=== PATIENT | female | born 1980 | race Caucasian/White ===

== ENCOUNTER 2017-08-29 10:22 | Emergency (ER) | payer BC, OTHER ==
[2017-08-29 10:31] VITALS: BP 132/89; PULSE 97; TEMP 98.8; BMI 30.4
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
[2017-08-29] MEDS ORDERED: KETOROLAC TROMETHAMINE 60 MG/2 ML VIAL IM ONE (11:23)
[2017-08-29] MEDS ORDERED: KETOROLAC TROMETHAMINE 60 MG/2 ML VIAL ONE (11:25)
== END 2017-08-29 11:28 | disposition home or self-care (01) ==
LOC: JERFT 10:22
PROC: 3E0233Z Introduction of Anti-inflammatory into Muscle, Percutaneous Approach (ICD-10-PCS; principal; 2017-08-29)
DX: M62.830 Muscle spasm of back (principal); V49.49XA Driver injured in collision with other motor vehicles in traffic accident, initial encounter; Y92.488 Other paved roadways as the place of occurrence of the external cause; Y93.89 Activity, other specified; Y99.8 Other external cause status
CPT/HCPCS: 84703; 99281-25

== ENCOUNTER 2018-03-07 09:36 | Emergency (ER) | payer BC, OTHER ==
[2018-03-07 09:52] VITALS: BMI 30.4
--- NOTE | 2018-03-07 09:53 | PDOC ---
History of Present Illness - General Chief Complaint: Chest Pain Stated Complaint: SOB Time Seen by Provider: 03/07/18 09:53 - History of Present Illness Initial Comments: 03/07/18 09:57 Ms. Tillman is a 37 yo female w/ pmh of WPW, afib, asthma, degenerative disc disease who presents for evaluation of 3 week history of cough productive of yellow sputum with subjective fever/chills. Patient reports she started a course of azithromycin 02/25 however saw no improvement of her symptoms. Patient further reports she has been taking over the counter medications for cough suppresion, lozenges, etc. Ms. Tillman also endorses recent left sided chest pain exacerbated by coughing and deep inspiration. Finally, patient endorses starting smoking again recently as she has been under a lot of stress due to housing issues. The patient denies headache and dizziness. Denies nausea, vomit, diarrhea and constipation. Denies dysuria, frequency, urgency and hematuria. Past History - Past Medical History Allergies/Adverse Reactions: Allergies Allergy/AdvReac Type Severity Reaction Status Date / Time Penicillins Allergy Verified 08/29/17 10:31 Home Medications: Ambulatory Orders Cyclobenzaprine HCl [Flexeril -] 10 mg PO TID #21 tablet 08/29/17 Ketorolac Tromethamine [Toradol] 10 mg PO TID #21 tablet 08/29/17 Albuterol Sulfate 0.5% [Ventolin 0.5% Nebulizing Soln. -] 1 amp NEB Q4H PRN #1 box 03/07/18 Nicotine [Nicotine Patch Kit] 1 each TD DAILY PRN #1 box 03/07/18 Prednisone 40 mg PO DAILY 4 Days #16 tablet 03/07/18 Asthma: Yes Cardiac Disorders: Yes (WPW,a.fib) COPD: No - Immunization History Immunization Up to Date: Yes - Suicide/Smoking/Psychosocial Hx Smoking Status: Yes Smoking History: Current every day smoker Have you smoked in the past 12 months: No Number of Cigarettes Smoked Daily: 1 If you are a former smoker, when did you quit?: 8 years ago Information on smoking cessation initiated: No Hx Alcohol Use: No Drug/Substance Use Hx: No Substance Use Type: None Hx Substance Use Treatment: No Review of Systems - Review of Systems Comments:: 03/07/18 09:57 GENERAL/CONSTITUTIONAL: +Subjective fever/chills. No weakness. HEAD, EYES, EARS, NOSE AND THROAT: No change in vision. No ear pain or discharge. No sore throat. CARDIOVASCULAR: +Left sided chest pain with productive cough as described. RESPIRATORY: No wheezing or hemoptysis. GASTROINTESTINAL: No nausea, vomiting, diarrhea or constipation. GENITOURINARY: No dysuria, frequency, or change in urination. MUSCULOSKELETAL: No joint or muscle swelling or pain. No neck or back pain. SKIN: No rash NEUROLOGIC: No headache, vertigo, loss of consciousness, or change in strength/ sensation. ENDOCRINE: No increased thirst. No abnormal weight change HEMATOLOGIC/LYMPHATIC: No anemia, easy bleeding, or history of blood clots. ALLERGIC/IMMUNOLOGIC: No hives or skin allergy. *Physical Exam - Vital Signs Last Vital Signs Temp Pulse Resp BP Pulse Ox 98.1 F 101 H 16 126/63 100 03/07/18 09:46 03/07/18 09:46 03/07/18 09:46 03/07/18 09:46 03/07/18 09:46 - Physical Exam Comments: 03/07/18 09:57 GENERAL: Awake, alert, and fully oriented, in no acute distress HEAD: No signs of trauma, normocephalic, atraumatic EYES: PERRLA, EOMI, sclera anicteric, conjunctiva clear ENT: Auricles normal inspection, hearing grossly normal, nares patent, oropharynx clear without exudates. Moist mucosa NECK: Normal ROM, supple, no lymphadenopathy, JVD, or masses LUNGS: +Wheezes appreciated. Patient has impressive cough appreciated on exam as well, however no distress, speaks full sentences HEART: Regular rate and rhythm, normal S1 and S2, no murmurs, rubs or gallops, peripheral pulses normal and equal bilaterally. ABDOMEN: Soft, nontender, normoactive bowel sounds. No guarding, no rebound. No masses EXTREMITIES: Normal inspection, Normal range of motion, no edema. No clubbing or cyanosis. NEUROLOGICAL: Cranial nerves II through XII grossly intact. Normal speech, normal gait, no focal sensorimotor deficits SKIN: Warm, Dry, normal turgor, no rashes or lesions noted. Moderate Sedation - Procedure Monitoring Vital Signs: Procedure Monitoring Vital Signs Temperature 98.1 F 03/07/18 09:46 Pulse Rate 101 H 03/07/18 09:46 Respiratory Rate 16 03/07/18 09:46 Blood Pressure 126/63 03/07/18 09:46 O2 Sat by Pulse Oximetry (%) 100 03/07/18 09:46 ED Treatment Course - LABORATORY CBC & Chemistry Diagram: 03/07/18 10:28 03/07/18 10:24 Medical Decision Making - Medical Decision Making 03/07/18 12:44 Ms. Tillman is a 37 yo female w/ pmh as described who presents for evaluation of symptoms concerning for asthma exacerbation vs. acute chest process vs. PE. Patient EKG significant for ST elevations in aVR however unchanged from previous. Patient labs grossly wnl as below. CXR negative. No concern for acute process at this time and patient reporting improvement of symptoms following breathing treatments and prednisone. Discharging patient w/ outpatient prednisone Rx and outpatient follow-up. Also did extensive counseling on smoking cessation and nicotine patches given as well. Patient will follow-up with PCP later this week. Patient verbalized understanding and agreement and will comply. Laboratory Results - last 24 hr 03/07/18 03/07/18 03/07/18 10:24 10:24 10:28 WBC 5.4 RBC 4.86 Hgb 13.2 Hct 38.9 MCV 80.1 MCH 27.1 MCHC 33.9 RDW 14.8 Plt Count 297 MPV 9.5 D Absolute Neuts (auto) 3.6 Neutrophils % 66.9 Lymphocytes % 19.2 D Monocytes % 10.7 H Eosinophils % 2.4 D Basophils % 0.8 Nucleated RBC % 0 D-Dimer 311 Sodium 140 Potassium 4.0 Chloride 107 Carbon Dioxide 23 Anion Gap 10 BUN 10 Creatinine 0.7 Creat Clearance w eGFR > 60 Random Glucose 69 L Calcium 8.8 Total Bilirubin 0.2 AST 12 L ALT 18 Alkaline Phosphatase 94 Creatine Kinase 64 Troponin I < 0.02 Total Protein 7.0 Albumin 3.8 Urine Color Urine Appearance Urine pH Ur Specific [place] Urine Protein Urine Glucose (UA) Urine Ketones Urine Blood Urine Nitrite Urine Bilirubin Urine Urobilinogen Ur Leukocyte Esterase Urine WBC (Auto) Urine RBC (Auto) Ur Epithelial Cells Urine Mucus Urine HCG, Qual 03/07/18 10:28 WBC RBC Hgb Hct MCV MCH MCHC RDW Plt Count MPV Absolute Neuts (auto) Neutrophils % Lymphocytes % Monocytes % Eosinophils % Basophils % Nucleated RBC % D-Dimer Sodium Potassium Chloride Carbon Dioxide Anion Gap BUN Creatinine Creat Clearance w eGFR Random Glucose Calcium Total Bilirubin AST ALT Alkaline Phosphatase Creatine Kinase Troponin I Total Protein Albumin Urine Color Yellow Urine Appearance Clear Urine pH 5.0 Ur Specific [place] 1.018 Urine Protein Negative Urine Glucose (UA) Negative Urine Ketones Negative Urine Blood Negative Urine Nitrite Negative Urine Bilirubin Negative Urine Urobilinogen 2.0 H Ur Leukocyte Esterase 3+ H D Urine WBC (Auto) 8 Urine RBC (Auto) 3 Ur Epithelial Cells Moderate Urine Mucus Rare Urine HCG, Qual Negative *DC/Admit/Observation/Transfer Diagnosis at time of Disposition: Cough Chest pain Qualifiers: Chest pain type: unspecified Qualified Code(s): R07.9 - Chest pain, unspecified - Discharge Dispostion Disposition: HOME Condition at time of disposition: Stable - Prescriptions Prescriptions: Albuterol Sulfate 0.5% [Ventolin 0.5% Nebulizing Soln. -] 1 amp NEB Q4H PRN #1 box PRN Reason: Cough Nicotine [Nicotine Patch Kit] 1 each TD DAILY PRN #1 box PRN Reason: Agitation Prednisone 40 mg PO DAILY 4 Days #16 tablet - Referrals - Patient Instructions Printed Discharge Instructions: DI for Atypical Chest Pain, DI for Asthma -- Adult, How to Quit Smoking Additional Instructions: You were evaluated today in the ER for your cough. No concerning findings were found at this time. We have sent prescriptions to your pharmacy. Please take all medications as proscribed. Follow-up with primary care provider later this week for further evaluation. Do your best to stop smoking as discussed to reduce symptoms. Return to ER if any difficulty breathing, fevers, chills, or other concerning symptoms. - Post Discharge Activity
[2018-03-07] MEDS: ALBUTEROL SO4 2.5/IPRATROPIUM 0.5 INH SOL 3 ML VIAL.NEB. NEB SCH ×4 (10:15→11:06)
[2018-03-07] MEDS ORDERED: ALBUTEROL SO4 2.5/IPRATROPIUM 0.5 INH SOL 3 ML VIAL.NEB. NEB ONE (10:17)
--- NOTE | 2018-03-07 10:38 | PDOC ---
Attending Attestation - Resident Resident Name: Shmuel Cha - ED Attending Attestation I have performed the following: I have examined & evaluated the patient, The case was reviewed & discussed with the resident, I agree w/resident's findings & plan, Exceptions are as noted - HPI HPI: 03/07/18 11:17 37yo F hx migraines, Astsg-Jqdsgeibb-Oyvtr syndrome with chronic chest pain, pAF , asthma presents to the ED with 3 weeks of progressive cough, SOB, and CP. Pt reports URI sxs 3 weeks ago followed by a constant cough. Pt reports progressive SOB, worse when she coughs. Cough keeps her up at night. Also reports CP when she coughs. Denies recent fevers, chills. Pt denies diaphoresis , dizziness, abd pain, N/V/D, urinary sxs, LE edema. Denies recent travel. Came today after 3 weeks of symptoms due to persistence of symptoms. Pt saw PMD last week, was given a course of z-pack that she completed. She has also reports taking multiple OTC cough and mucinex medications with minimal relief. - Physicial Exam PE: 03/07/18 11:28 GENERAL: Awake, alert, and fully oriented, in no acute distress. Frequent dry cough HEAD: No signs of trauma EYES: PERRLA, EOMI, sclera anicteric, conjunctiva clear ENT: Nares patent, oropharynx clear without exudates. Moist mucosa NECK: Normal ROM, supple, no lymphadenopathy, JVD, or masses LUNGS: Breath sounds equal, clear to auscultation bilaterally. No wheezes, and no crackles HEART: Regular rate and rhythm, normal S1 and S2, no murmurs, rubs or gallops ABDOMEN: Soft, nontender, normoactive bowel sounds. No guarding, no rebound. No masses EXTREMITIES: Normal range of motion, no edema. No cords, erythema, or tenderness NEUROLOGICAL: Normal speech, cranial nerves intact, 5/5 strength in all 4 extremities, normal sensation to light touch in all 4 extremities, normal cerebellar exam, normal tone SKIN: Warm, Dry, normal turgor, no rashes or lesions noted. - Medical Decision Making 03/07/18 11:31 37yo F hx pAF, WPW, asthma presents to the ED with 3 weeks of cough, SOB, chest tightness when coughing. Vitals with mild tachycardia. Exam unremarkable, lungs clear. DDx includes but not limited to asthma exacerbation vs asthmatic bronchitis vs ACS vs PE. EKG today is unchanged from previous and pt reports chest tightness only when coughing. Symptoms not exertional. PE is consideration , although pt is low risk. Does not clear PERC due to HR 101, will check dimer. Reassess. 03/07/18 12:38 Pt is feeling much better after nebs and steroids. Lungs remain clear. No crackles. Labs including dimer, trop negative. Likely asthmatic bronchitis. Pt is comfortable, well appearing. WIll DC with steroid course, neb bullets. I discussed the physical exam findings, ancillary test results and final diagnoses with the patient. I answered all of the patient's questions. The patient was satisfied with the care received and felt comfortable with the discharge plan and treatment plan. The patient will call their primary care physician within 24 hours to arrange follow-up and will return to the Emergency Department with any new, persistent or worsening symptoms. Heart Score/ECG Review #1 03/07/18 11:30 Twelve-lead EKG was performed and reviewed by me. Normal sinus rhythm, rate 93. Normal axis. ST elevation in aVR with reciprocal ST depressions in 1, 2, V5 and V6. When compared to EKG from 06/14/2017, no significant changes.
[2018-03-07] MEDS ORDERED: SODIUM CHLORIDE 1,000 ML IV STA (11:12)
[2018-03-07] MEDS ORDERED: predniSONE 20 MG TABLET (UD) PO ONE (11:12)
[2018-03-07 11:21] LABS: BASO % 0.8 % (0-2.0); EOS % 2.4 % (0-4.5); HEMATOCRIT 38.9 % (32.4-45.2); HEMOGLOBIN 13.2 GM/dL (10.7-15.3); LYMPH % 19.2 % (8-40); MCH 27.1 pg (25.7-33.7); MCHC 33.9 g/dl (32.0-36.0); MEAN CELL VOLUME 80.1 fl (80-96); MEAN PLT VOLUME 9.5 fl (7.5-11.1); MONO % 10.7 % (3.8-10.2); NEUT % 66.9 % (42.8-82.8); PLATELET COUNT 297 K/MM3 (134-434); RBC 4.86 M/mm3 (3.60-5.2); RDW 14.8 % (11.6-15.6); WHITE BLOOD COUNT 5.4 K/mm3 (4.0-10.0)
[2018-03-07 11:28] LABS: URINE APPEARANCE CLEAR; URINE BILIRUBIN NEGATIVE (<2.0 mg/dL); URINE COLOR YELLOW; URINE GLUCOSE (UA) NEGATIVE (NEGATIVE); URINE KETONE NEGATIVE (NEGATIVE); URINE LEUK ESTERASE 3+ (NEGATIVE); URINE NITRITE NEGATIVE (NEGATIVE); URINE PROTEIN NEGATIVE (NEGATIVE)
[2018-03-07 11:29] LABS: HCG,QUALITATIVE URINE Negative
[2018-03-07 11:37] LABS: EPI CELLS MODERATE /HPF (FEW); URINE MUCUS RARE
[2018-03-07] MEDS ORDERED: predniSONE 20 MG TABLET (UD) ONE (11:45)
[2018-03-07 11:55] LABS: ALBUMIN 3.8 g/dl (3.4-5.0); ALK PHOS 94 U/L (45-117); ANION GAP 10 MMOL/L (8-16); BILIRUBIN,TOTAL 0.2 mg/dL (0.2-1); BLOOD UREA NITROGEN 10 mg/dL (7-18); CALCIUM 8.8 mg/dL (8.5-10.1); CHLORIDE 107 mmol/L (98-107); CO2 23 mmol/L (21-32); CREATININE 0.7 mg/dL (0.55-1.3); GLUCOSE,RANDOM 69 mg/dL (74-106); SGOT/AST 12 U/L (15-37); SGPT/ALT 18 U/L (13-61); SODIUM 140 mmol/L (136-145)
[2018-03-07 13:46] VITALS: BP 112/59; PULSE 92; TEMP 98.2
--- NOTE | 2018-03-07 15:14 | EKG ---
Test Reason : Blood Pressure : / mmHG Vent. Rate : 093 BPM Atrial Rate : 093 BPM P-R Int : 110 ms QRS Dur : 130 ms QT Int : 362 ms P-R-T Axes : 026 049 217 degrees QTc Int : 450 ms NORMAL SINUS RHYTHM VENTRICULAR PRE-EXCITATION, WPW PATTERN TYPE B ABNORMAL ECG WHEN COMPARED WITH ECG OF 14-JUN-2017 11:55, PREMATURE VENTRICULAR COMPLEXES ARE NO LONGER PRESENT Confirmed by FELIX YIP MD ([id number]) on 03/07/2018 3:14:25 PM Referred By: Confirmed By:FELIX YIP MD
== END 2018-03-07 13:35 | disposition home or self-care (01) ==
LOC: JER 09:36
PROC: 3E0337Z Introduction of Electrolytic and Water Balance Substance into Peripheral Vein, Percutaneous Approach (ICD-10-PCS; principal; 2018-03-07)
DX: R07.9 Chest pain, unspecified (principal); R05 Cough
CPT/HCPCS: 36415; 71046-TC-FY; 80053; 81003; 81015; 82550; 84484; 84703; 85025; 85379; 87086; 93005; 93010; 99283-25; J7030

== ENCOUNTER 2018-03-14 15:23 | Inpatient (IN) | payer BC, OTHER ==
[2018-03-14] MEDS ORDERED: ALBUTEROL SO4 2.5/IPRATROPIUM 0.5 INH SOL 3 ML VIAL.NEB. NEB ONE ×2 (15:28→15:35)
--- NOTE | 2018-03-14 15:35 | PDOC ---
Rapid Medical Evaluation Chief Complaint: Asthma Medical Evaluation: Allergies Allergy/AdvReac Type Severity Reaction Status Date / Time Penicillins Allergy Verified 08/29/17 10:31 03/14/18 15:31 I have performed a brief in-person evaluation of this patient. The patient presents with a chief complaint of:severe cough and worsen SOB Pertinent physical exam findings: tripoding with thick tight cough, Poor air movement I have ordered the following: DuoNeb and walked to [facility] - Discussed with MOMO Villafana to eval and possibly escalate The patient will proceed to the ED for further evaluation. 03/14/18 15:32 Discharge Disposition - Discharge Dispostion Condition at time of disposition: Stable - Referrals - Patient Instructions - Post Discharge Activity
[2018-03-14] MEDS ORDERED: methylPREDNISolone NA SUCC 125 MG/2 ML VIAL IVPUSH ONE (16:04)
[2018-03-14] MEDS ORDERED: MAGNESIUM SULF 50% (8.12 MEQ/2 ML-1 GM VIAL) IVPB ONE (16:04)
--- NOTE | 2018-03-14 16:05 | PDOC ---
History of Present Illness - General Chief Complaint: Asthma Stated Complaint: CHEST PAIN, SOB Time Seen by Provider: 03/14/18 15:39 History Source: Patient - History of Present Illness Timing/Duration: reports: other Past History - Past Medical History Allergies/Adverse Reactions: Allergies Allergy/AdvReac Type Severity Reaction Status Date / Time Penicillins Allergy Verified 08/29/17 10:31 Home Medications: Ambulatory Orders Cyclobenzaprine HCl [Flexeril -] 10 mg PO TID #21 tablet 08/29/17 Ketorolac Tromethamine [Toradol] 10 mg PO TID #21 tablet 08/29/17 Albuterol Sulfate 0.5% [Ventolin 0.5% Nebulizing Soln. -] 1 amp NEB Q4H PRN #1 box 03/07/18 Nicotine [Nicotine Patch Kit] 1 each TD DAILY PRN #1 box 03/07/18 Asthma: Yes Cardiac Disorders: Yes (chaya SANCHEZ) COPD: No - Surgical History Cardiac Surgery: No - Immunization History Immunization Up to Date: Yes - Suicide/Smoking/Psychosocial Hx Smoking Status: Yes Smoking History: Never smoked Have you smoked in the past 12 months: No Number of Cigarettes Smoked Daily: 1 If you are a former smoker, when did you quit?: 8 years ago Information on smoking cessation initiated: No Hx Alcohol Use: No Drug/Substance Use Hx: No Substance Use Type: None Hx Substance Use Treatment: No Review of Systems - Review of Systems Constitutional: No: Fever Respiratory: Yes: Shortness of Breath. No: Cough Cardiac (ROS): Yes: Chest Tightness *Physical Exam - Vital Signs Last Vital Signs Temp Pulse Resp BP Pulse Ox 98.4 F 114 H 22 H 139/97 100 03/14/18 15:29 03/14/18 15:29 03/14/18 15:29 03/14/18 15:29 03/14/18 15:29 - Physical Exam General Appearance: Yes: Appropriately Dressed, Mild Distress HEENT: positive: Normal Voice Neck: positive: Supple Respiratory/Chest: positive: Wheezing Cardiovascular: positive: S1, S2, Tachycardia Integumentary: positive: Dry, Warm Neurologic: positive: Fully Oriented, Alert, Normal Mood/Affect Moderate Sedation - Procedure Monitoring Vital Signs: Procedure Monitoring Vital Signs Temperature 98.4 F 03/14/18 15:29 Pulse Rate 114 H 03/14/18 15:29 Respiratory Rate 22 H 03/14/18 15:29 Blood Pressure 139/97 03/14/18 15:29 O2 Sat by Pulse Oximetry (%) 100 03/14/18 15:29 ED Treatment Course - LABORATORY CBC & Chemistry Diagram: 03/14/18 16:20 03/14/18 16:20 - RADIOLOGY Radiology Studies Ordered: Category Date Time Status CHEST X-RAY PORTABLE* [RAD] Stat Radiology 03/14/18 16:04 Ordered Medical Decision Making - Medical Decision Making 03/14/18 16:05 37 yo F, WPW syndrome w/ chronic CP, pAF, asthma, s/p last admission 4 years ago , no intubations, pna, here w/ sob and wheezing. pt reports that she was seen in ED for same last week and had neg w/u including ddimer, EKG and CXR. Was dc w / steroid taper but states sxs never completely resolved. No cough, f/c. See exam Asthma flare S/p recent ED visit and completed pred taper w/ no relief CXR on prior visit neg Tachy to 114 and tachypneic to 22 w/ 100% sats on RA w/ diffuse wheezing on exam -serial nebs -pred -possible obs admit 03/14/18 16:09 At some point while receiving ebs, pt /co feeling unwell w/ palpitations, dizziness and "spasm" of her R hand. States she has had similar episode and always during nebs administration. Will hold off on nebs, order mag, steroids and EKG. Dr Smith aware 03/14/18 17:50 WBC of 18, possibly related to recent steroid taper. CXR read as no acute process. Will hold off on abx at this time. Pt improved w/ tx but still has some tightness. Will arrange admission at this time *DC/Admit/Observation/Transfer Diagnosis at time of Disposition: Asthma flare Qualifiers: Asthma severity: unspecified severity Asthma persistence: persistent Qualified Code(s): J45.901 - Unspecified asthma with (acute) exacerbation - Discharge Dispostion Condition at time of disposition: Fair Decision to Admit order: Yes - Referrals - Patient Instructions - Post Discharge Activity
[2018-03-14] MEDS ORDERED: MAGNESIUM 1GM/D5W - 2 GM/200 ML IVPB IVPB ONE (16:11)
[2018-03-14] MEDS ORDERED: methylPREDNISolone NA SUCC 125 MG/2 ML VIAL ONE (16:11)
[2018-03-14 16:32] LABS: BASO % 0.9 % (0-2.0); EOS % 0.8 % (0-4.5); HEMATOCRIT 40.7 % (32.4-45.2); HEMOGLOBIN 13.6 GM/dL (10.7-15.3); LYMPH % 35.4 % (8-40); MCH 26.8 pg (25.7-33.7); MCHC 33.4 g/dl (32.0-36.0); MEAN CELL VOLUME 80.3 fl (80-96); MEAN PLT VOLUME 9.5 fl (7.5-11.1); NEUT % 56.9 % (42.8-82.8); PLATELET COUNT 410 K/MM3 (134-434); RBC 5.07 M/mm3 (3.60-5.2); RDW 15.1 % (11.6-15.6); WHITE BLOOD COUNT 18.4 K/mm3 (4.0-10.0)
[2018-03-14 17:12] LABS: ALBUMIN 3.9 g/dl (3.4-5.0); ALK PHOS 79 U/L (45-117); ANION GAP 12 MMOL/L (8-16); BILIRUBIN,TOTAL 0.3 mg/dL (0.2-1); BLOOD UREA NITROGEN 9 mg/dL (7-18); CALCIUM 9.4 mg/dL (8.5-10.1); CHLORIDE 104 mmol/L (98-107); CO2 25 mmol/L (21-32); GLUCOSE,RANDOM 98 mg/dL (74-106); POTASSIUM 3.7 mmol/L (3.5-5.1); SGOT/AST 15 U/L (15-37); SGPT/ALT 21 U/L (13-61); SODIUM 141 mmol/L (136-145)
--- NOTE | 2018-03-14 17:46 | PDOC ---
*Physical Exam - Vital Signs Last Vital Signs Temp Pulse Resp BP Pulse Ox 98.4 F 82 20 122/70 100 03/14/18 15:29 03/14/18 16:37 03/14/18 16:37 03/14/18 16:37 03/14/18 16:37 ED Treatment Course - LABORATORY CBC & Chemistry Diagram: 03/14/18 16:20 03/14/18 16:20 - ADDITIONAL ORDERS Additional order review: Laboratory Results 03/14/18 03/14/18 16:20 16:20 Sodium 141 Potassium 3.7 Chloride 104 Carbon Dioxide 25 Anion Gap 12 BUN 9 Creatinine 1.0 Creat Clearance w eGFR > 60 Random Glucose 98 Calcium 9.4 Total Bilirubin 0.3 AST 15 ALT 21 Alkaline Phosphatase 79 Creatine Kinase 42 Troponin I < 0.02 Total Protein 7.0 Albumin 3.9 Serum , Qual Negative 03/14/18 16:20 RBC 5.07 MCV 80.3 MCHC 33.4 RDW 15.1 MPV 9.5 Neutrophils % 56.9 Lymphocytes % 35.4 D Monocytes % 6.0 Eosinophils % 0.8 Basophils % 0.9 - Medications Given in the ED: ED Medications Discontinued Medications Generic Name Dose Route Start Last Admin Trade Name Freq PRN Reason Stop Dose Admin Albuterol/Ipratropium 1 amp 03/14/18 15:28 03/14/18 15:38 Duoneb - NEB 03/14/18 15:29 1 amp ONCE ONE Administration Magnesium Sulfate 2 gm 03/14/18 16:04 03/14/18 16:31 Magnesium Sulfate IVPB 03/14/18 16:05 2 gm ONCE ONE Administration Methylprednisolone Sodium Succinate 125 mg 03/14/18 16:04 03/14/18 16:31 Solu-Medrol - IVPUSH 03/14/18 16:05 125 mg ONCE ONE Administration Medical Decision Making - Medical Decision Making 03/14/18 17:46 Pt seen by the Advanced Practice Provider under my direct supervision Ancillary studies reviewed I agree with plan as outlined by the Advanced Practice Provider MOMO Sloan *DC/Admit/Observation/Transfer - Discharge Dispostion Condition at time of disposition: Stable - Referrals - Patient Instructions - Post Discharge Activity
--- NOTE | 2018-03-14 19:35 | HP ---
Admitting History and Physical - Primary Care Physician PCP: Perfecto Ferrari - Admission History of Present Illness: 37 yo F, WPW syndrome w/ chronic CP, pAF, asthma, s/p last admission 4 years ago , no intubations, pna, here w/ sob and wheezing. pt reports that she was seen in ED for same last week and had neg w/u including ddimer, EKG and CXR. Was dc w / steroid taper but states sxs never completely resolved. No cough, f/c. - Past Medical History Pulmonary: Yes: Asthma Musculoskeletal: Yes: Chronic low back pain, Other (pia. knee pain ) - Past Surgical History Past Surgical History: Yes: Arthrosocopy (bilateral knees ), Tonsillectomy - Smoking History Smoking history: Never smoked Have you smoked in the past 12 months: No Aproximately how many cigarettes per day: 1 If you are a former smoker, when did you quit?: 8 years ago - Alcohol/Substance Use Hx Alcohol Use: No History of Substance Use: reports: None - Social History ADL: Independent Occupation: on disability History of Recent Travel: No Home Medications - Allergies Allergies/Adverse Reactions: Allergies Allergy/AdvReac Type Severity Reaction Status Date / Time Penicillins Allergy Verified 08/29/17 10:31 - Home Medications Home Medications: Ambulatory Orders Cyclobenzaprine HCl [Flexeril -] 10 mg PO TID #21 tablet 08/29/17 Ketorolac Tromethamine [Toradol] 10 mg PO TID #21 tablet 08/29/17 Albuterol Sulfate 0.5% [Ventolin 0.5% Nebulizing Soln. -] 1 amp NEB Q4H PRN #1 box 03/07/18 Nicotine [Nicotine Patch Kit] 1 each TD DAILY PRN #1 box 03/07/18 Family Disease History - Family Disease History Family Disease History: Diabetes: Father, Heart Disease: Father, CA: Mother ( bladder CA) Physical Examination Vital Signs: Vital Signs Temperature 98.4 F 03/14/18 15:29 Pulse Rate 82 03/14/18 16:37 Respiratory Rate 20 03/14/18 16:37 Blood Pressure 122/70 03/14/18 16:37 O2 Sat by Pulse Oximetry (%) 100 03/14/18 16:37 Constitutional: Yes: No Distress HENT: Yes: Atraumatic Neck: Yes: Supple Cardiovascular: Yes: Regular Rate and Rhythm Respiratory: Yes: Rhonchi, Wheezes Gastrointestinal: Yes: Normal Bowel Sounds Extremities: Yes: WNL Edema: No Neurological: Yes: Alert, Oriented Labs: CBC, BMP 03/14/18 16:20 03/14/18 16:20 Imaging - Results X-ray: Report Reviewed Problem List - Problems (1) Asthma flare Assessment/Plan: iv steroids duo nebs pulmonary consult prn cough syrup Code(s): J45.901 - UNSPECIFIED ASTHMA WITH (ACUTE) EXACERBATION Qualifiers: Asthma severity: unspecified severity Asthma persistence: persistent Qualified Code(s): J45.901 - Unspecified asthma with (acute) exacerbation Assessment/Plan Laboratory Tests 03/14/18 03/14/18 03/14/18 16:20 16:20 16:20 WBC 18.4 H RBC 5.07 Hgb 13.6 Hct 40.7 MCV 80.3 MCH 26.8 MCHC 33.4 RDW 15.1 Plt Count 410 D MPV 9.5 Absolute Neuts (auto) 10.5 H Neutrophils % 56.9 Lymphocytes % 35.4 D Monocytes % 6.0 Eosinophils % 0.8 Basophils % 0.9 Nucleated RBC % 0 Sodium 141 Potassium 3.7 Chloride 104 Carbon Dioxide 25 Anion Gap 12 BUN 9 Creatinine 1.0 Creat Clearance w eGFR > 60 Random Glucose 98 Calcium 9.4 Total Bilirubin 0.3 AST 15 ALT 21 Alkaline Phosphatase 79 Creatine Kinase 42 Troponin I < 0.02 Total Protein 7.0 Albumin 3.9 Serum , Qual Negative
[2018-03-14] MEDS ORDERED: ALBUTEROL SO4 2.5/IPRATROPIUM 0.5 INH SOL 3 ML VIAL.NEB. NEB PRN (19:39)
[2018-03-14] MEDS ORDERED: ACETAMINOPHEN 325 MG TABLET (FP) PO PRN (19:39)
[2018-03-14] MEDS ORDERED: methylPREDNISolone NA SUCC 40 MG/1 ML VIAL ONE (20:25)
[2018-03-14] MEDS: NICOTINE 21 MG/24 HOURS TOPICAL PATCH TD SCH (20:34)
[2018-03-14] MEDS: methylPREDNISolone NA SUCC 40 MG/1 ML VIAL IVPUSH SCH (20:34)
[2018-03-15 00:15] VITALS: TEMP 98.2; BMI 30.9
[2018-03-15] MEDS ORDERED: ACETAMINOPHEN 325 MG TABLET (FP) PO ONE (01:00)
[2018-03-15] MEDS: guaiFENesin/D-METHORPHAN HB 10 ML UNIT-DOSE CUPS PO PRN ×2 (01:04→07:58)
[2018-03-15] MEDS: methylPREDNISolone NA SUCC 40 MG/1 ML VIAL IVPUSH SCH ×2 (01:06→11:51)
[2018-03-15 09:21] VITALS: BP 130/59; PULSE 78
[2018-03-15] MEDS: NICOTINE 21 MG/24 HOURS TOPICAL PATCH TD SCH (10:56)
--- NOTE | 2018-03-15 16:29 | EKG ---
Test Reason : Blood Pressure : / mmHG Vent. Rate : 071 BPM Atrial Rate : 071 BPM P-R Int : 154 ms QRS Dur : 108 ms QT Int : 422 ms P-R-T Axes : 017 050 021 degrees QTc Int : 458 ms NORMAL SINUS RHYTHM WITH SINUS ARRHYTHMIA NORMAL ECG WHEN COMPARED WITH ECG OF 07-MAR-2018 09:55, [id number] IS NO LONGER PRESENT Confirmed by MD NIKHIL, ESME ([id number]) on 03/15/2018 4:29:06 PM Referred By: Confirmed By:ESME TEJEDA MD
--- NOTE | 2018-03-15 20:47 | DS ---
Physical Examination Vital Signs: Vital Signs Temperature 98.2 F 03/15/18 09:20 Pulse Rate 78 03/15/18 09:20 Respiratory Rate 20 03/15/18 09:20 Blood Pressure 130/59 L 03/15/18 09:20 O2 Sat by Pulse Oximetry (%) 97 03/15/18 09:00 Labs: CBC, BMP 03/14/18 16:20 03/14/18 16:20 Discharge Summary Reason For Visit: ASTHMA Condition: Fair - Instructions Disposition: AGAINST MEDICAL ADVICE - Home Medications Comprehensive Discharge Medication List: Ambulatory Orders Cyclobenzaprine HCl [Flexeril -] 10 mg PO TID #21 tablet 08/29/17 Ketorolac Tromethamine [Toradol] 10 mg PO TID #21 tablet 08/29/17 Albuterol Sulfate 0.5% [Ventolin 0.5% Nebulizing Soln. -] 1 amp NEB Q4H PRN #1 box 03/07/18 Nicotine [Nicotine Patch Kit] 1 each TD DAILY PRN #1 box 03/07/18 AMA
== END 2018-03-15 13:00 | disposition left against medical advice (07) | DRG 203 ==
LOC: JER 15:23 → JERBED 17:53 → J5S 23:58
PROVIDERS: ADMIT Internal Medicine; ATTEND Internal Medicine
DX: J45.901 Unspecified asthma with (acute) exacerbation (principal); I48.91 Unspecified atrial fibrillation; R07.89 Other chest pain; M54.5 Low back pain
CPT/HCPCS: 36415; 71045-TC-FY; 80053; 82550; 84484; 84703; 85025; 87040; 93005; 93010; 99284-25

== ENCOUNTER 2018-06-25 12:31 | Observation (INO) | payer BC, OTHER ==
[2018-06-25 12:43] VITALS: BMI 31.1
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
[2018-06-25] MEDS ORDERED: methylPREDNISolone NA SUCC 125 MG/2 ML VIAL IVPB ONE (13:21)
[2018-06-25] MEDS ORDERED: SODIUM CHLORIDE 0.9% 1000 ML INFUS.BAG IV ONE (13:21)
[2018-06-25] MEDS ORDERED: ALBUTEROL SO4 2.5/IPRATROPIUM 0.5 INH SOL 3 ML VIAL.NEB. NEB ONE ×5 (13:21→19:53)
[2018-06-25] MEDS ORDERED: MAGNESIUM SULF 50% (8.12 MEQ/2 ML-1 GM VIAL) IVPB ONE (13:22)
--- NOTE | 2018-06-25 13:23 | PDOC ---
History of Present Illness - General Chief Complaint: Asthma Stated Complaint: SICK Time Seen by Provider: 06/25/18 12:43 History Source: Patient Exam Limitations: No Limitations - History of Present Illness Initial Comments: 38 yo F h/o multisubstance abuse, asthma on ventolin only never been intubated, untreated WPW p/w worsening cough since last thanksgi. She endorses brownish sputum production and subjective fever intermittently over the last few months. Patient visited [facility] ED and was diagnosed with bronchitis. She came back today and stated she might have pneumonia. She also endorses substernal pressure like chest pain, 03/07, w/ isolated L shoulder pain that radiates to L hand, associated w/ sob, palpitation, tightness, deep breath and palpation. Her last asthma attack was 3 days ago. She used albuterol and O2 with good relief. 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 Denies focal weakness, diarrhea, urinary sx. 06/25/18 15:41 Labs came back essentially unremarkable for any acute process. Gave steroids, nebs x 2 and Mg2+ with minimal relief. Patient still c/o feeling short of breath , having chest pain. In the setting of h/o untreated WPW, will admit the patient to tele obs and have cardiology re-evaluate the patient. Past History - Past Medical History Allergies/Adverse Reactions: Allergies Allergy/AdvReac Type Severity Reaction Status Date / Time Penicillins Allergy Verified 08/29/17 10:31 Home Medications: Ambulatory Orders Cyclobenzaprine HCl [Flexeril -] 10 mg PO TID #21 tablet 08/29/17 Albuterol Sulfate 0.5% [Ventolin 0.5% Nebulizing Soln. -] 1 amp NEB Q4H PRN #1 box 03/07/18 Oxycodone HCl/Acetaminophen [Percocet 10-325 mg Tablet] 1 each PO Q4HWA PRN Asthma: Yes Cardiac Disorders: Yes (WPW,a.fib) COPD: No - Surgical History Cardiac Surgery: No Orthopedic Surgery: (arthroscopic knee surgery x 2,back surgeries 2months ago) - Immunization History Immunization Up to Date: Yes - Suicide/Smoking/Psychosocial Hx Smoking Status: Yes Smoking History: Current every day smoker Have you smoked in the past 12 months: No Number of Cigarettes Smoked Daily: 1 If you are a former smoker, when did you quit?: 8 years ago Information on smoking cessation initiated: No 'Breaking Loose' booklet given: 03/14/18 Hx Alcohol Use: No Drug/Substance Use Hx: Yes Substance Use Type: Marijuana Hx Substance Use Treatment: No Review of Systems - Review of Systems Able to Perform ROS?: Yes Is the patient limited Portuguese proficient: No Constitutional: Yes: Chills, Diaphoresis, Fever Respiratory: Yes: Cough, Shortness of Breath, Wheezing, Productive cough Cardiac (ROS): Yes: Chest Pain, Palpitations, Syncope, Chest Tightness *Physical Exam - Vital Signs Last Vital Signs Temp Pulse Resp BP Pulse Ox 78 40 H 114/80 98 06/25/18 12:41 06/25/18 12:41 06/25/18 12:41 06/25/18 12:41 - Physical Exam General Appearance: Yes: Moderate Distress Respiratory/Chest: positive: Decreased Breath Sounds, Wheezing Gastrointestinal/Abdominal: positive: Normal Bowel Sounds. negative: Tender Extremity: negative: Swelling Neurologic: positive: lamination spinner II-XII NML intact ED Treatment Course - LABORATORY CBC & Chemistry Diagram: 06/25/18 14:10 06/25/18 14:10 *DC/Admit/Observation/Transfer Diagnosis at time of Disposition: Neck pain, acute, WPW (Ctpme-Wdbzkjzea-Pzxkj syndrome) Asthma flare Qualifiers: Asthma severity: unspecified severity Asthma persistence: unspecified Qualified Code(s): J45.901 - Unspecified asthma with (acute) exacerbation Chest pain Qualifiers: Chest pain type: unspecified Qualified Code(s): R07.9 - Chest pain, unspecified - Discharge Dispostion Condition at time of disposition: Fair Decision to Admit order: Yes - Referrals Referrals: Brandon Santiago MD [Primary Care Provider] - - Patient Instructions - Post Discharge Activity
[2018-06-25] MEDS ORDERED: methylPREDNISolone NA SUCC 125 MG/2 ML VIAL ONE (13:52)
[2018-06-25] MEDS ORDERED: MAGNESIUM 1GM/D5W - 1 GM/100 ML IVPB IVPB ONE (13:52)
[2018-06-25] MEDS ORDERED: KETOROLAC TROMETHAMINE 15 MG/ML VIAL IVPUSH ONE (14:09)
[2018-06-25 14:19] LABS: BASO % 0.8 % (0-2.0); EOS % 1.8 % (0-4.5); HEMATOCRIT 43.1 % (32.4-45.2); MCH 25.9 pg (25.7-33.7); MCHC 32.4 g/dl (32.0-36.0); MEAN CELL VOLUME 79.8 fl (80-96); MEAN PLT VOLUME 8.8 fl (7.5-11.1); MONO % 6.1 % (3.8-10.2); NEUT % 60.3 % (42.8-82.8); PLATELET COUNT 350 K/MM3 (134-434); RDW 15.7 % (11.6-15.6)
[2018-06-25 14:45] LABS: ALBUMIN 4.3 g/dl (3.4-5.0); ALK PHOS 93 U/L (45-117); ANION GAP 10 MMOL/L (8-16); BILIRUBIN,TOTAL 0.5 mg/dL (0.2-1); BLOOD UREA NITROGEN 10 mg/dL (7-18); CALCIUM 9.9 mg/dL (8.5-10.1); CHLORIDE 108 mmol/L (98-107); CO2 22 mmol/L (21-32); CREATININE 0.8 mg/dL (0.55-1.3); GLUCOSE,RANDOM 93 mg/dL (74-106); MAGNESIUM 2.1 mg/dL (1.8-2.4); POTASSIUM 3.8 mmol/L (3.5-5.1); SGOT/AST 23 U/L (15-37); SGPT/ALT 30 U/L (13-61); SODIUM 139 mmol/L (136-145); TOT PROT 7.6 g/dl (6.4-8.2)
[2018-06-25] MEDS ORDERED: oxyCODONE HCL 5 MG TABLET PO PRN (18:53)
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
[2018-06-25] MEDS: ALBUTEROL SO4 2.5/IPRATROPIUM 0.5 INH SOL 3 ML VIAL.NEB. NEB SCH ×2 (19:00→20:10)
[2018-06-25] MEDS ORDERED: oxyCODONE HCL 5 MG TABLET ONE (19:02)
[2018-06-25] MEDS ORDERED: methylPREDNISolone NA SUCC 40 MG/1 ML VIAL ONE (19:53)
[2018-06-25] MEDS ORDERED: methylPREDNISolone NA SUCC 40 MG/1 ML VIAL IVPUSH SCH ×2 (21:00→21:45)
[2018-06-25] MEDS: NICOTINE 14 MG/24 HOURS TOPICAL PATCH TD SCH (21:17)
[2018-06-25] MEDS ORDERED: ASPIRIN 325 MG TABLET PO ONE (21:30)
[2018-06-25] MEDS ORDERED: NITROGLYCERIN SUBLINGUAL 1/150 0.4 MG TAB SL PRN (21:31)
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
[2018-06-25] MEDS ORDERED: CYCLOBENZAPRINE HCL 10 MG TABLET (FP) PO SCH (22:00)
[2018-06-25] MEDS ORDERED: DOXYCYCLINE HYCLATE 100 MG VIAL ONE (22:19)
[2018-06-25] MEDS ORDERED: CYCLOBENZAPRINE HCL 10 MG TABLET (FP) ONE (22:19)
[2018-06-25] MEDS ORDERED: ASPIRIN 325 MG TABLET ONE (22:19)
[2018-06-25] MEDS: DOXYCYCLINE INJECTION 100 MG in DEXTROSE 5%-WATER - 100 ML IVPB SCH (22:30)
[2018-06-25 22:46] LABS: COCAINE, UR NEGATIVE ng/ml (CUTOFF=300); METHADONE, UR NEGATIVE ng/ml (CUTOFF=300); OPIATES, URI NEGATIVE ng/ml (CUTOFF=300); PHENCYCLIDINE,URINE NEGATIVE ng/ml (CUTOFF=25); URINE AMPHETAMINES NEGATIVE ng/ml (CUTOFF=500); URINE BARBITURATES NEGATIVE ng/ml (CUTOFF=200); URINE BENZODIAZEPINES NEGATIVE ng/ml (CUTOFF=200)
[2018-06-26] MEDS ORDERED: ALBUTEROL SO4 0.083% IH SOL 2.5 MG/3 ML VIAL.NEB. NEB ONE (03:09)
[2018-06-26] MEDS ORDERED: methylPREDNISolone NA SUCC 40 MG/1 ML VIAL ONE (03:10)
[2018-06-26] MEDS ORDERED: ACETAMINOPHEN 325 MG TABLET (FP) ONE ×2 (03:14→13:11)
[2018-06-26] MEDS ORDERED: oxyCODONE HCL 5 MG TABLET ONE ×2 (03:14→13:12)
[2018-06-26] MEDS: methylPREDNISolone NA SUCC 40 MG/1 ML VIAL IVPUSH SCH ×3 (03:15→18:02)
[2018-06-26] MEDS: ALBUTEROL SO4 0.083% IH SOL 2.5 MG/3 ML VIAL.NEB. NEB PRN (03:15)
[2018-06-26] MEDS ORDERED: CYCLOBENZAPRINE HCL 10 MG TABLET (FP) ONE (03:15)
[2018-06-26] MEDS: oxyCODONE HCL 5 MG TABLET PO PRN ×3 (03:15→20:57)
[2018-06-26] MEDS: CYCLOBENZAPRINE HCL 10 MG TABLET (FP) PO PRN ×2 (03:15→20:57)
[2018-06-26] MEDS: ACETAMINOPHEN 325 MG TABLET (FP) PO PRN ×3 (03:20→20:58)
[2018-06-26] MEDS: ALBUTEROL SO4 2.5/IPRATROPIUM 0.5 INH SOL 3 ML VIAL.NEB. NEB SCH ×4 (08:11→20:19)
[2018-06-26 08:28] LABS: HEMOGLOBIN 12.3 GM/dL (10.7-15.3); MCH 25.9 pg (25.7-33.7); MCHC 32.5 g/dl (32.0-36.0); MEAN CELL VOLUME 79.8 fl (80-96); PLATELET COUNT 298 K/MM3 (134-434); RBC 4.77 M/mm3 (3.60-5.2); WHITE BLOOD COUNT 17.2 K/mm3 (4.0-10.0)
[2018-06-26] MEDS: ASPIRIN 81 MG CHEWABLE TABLETS PO SCH (09:06)
[2018-06-26] MEDS: NICOTINE 14 MG/24 HOURS TOPICAL PATCH TD SCH (09:07)
[2018-06-26 09:08] LABS: ANION GAP 9 MMOL/L (8-16); BLOOD UREA NITROGEN 12 mg/dL (7-18); CALCIUM 9.1 mg/dL (8.5-10.1); CHLORIDE 108 mmol/L (98-107); CHOLESTEROL 218 mg/dL (50-200); CO2 20 mmol/L (21-32); CREATININE 0.7 mg/dL (0.55-1.3); GLUCOSE,RANDOM 135 mg/dL (74-106); HDL CHOLESTEROL 68 mg/dL (40-60); MAGNESIUM 2.1 mg/dL (1.8-2.4); PHOSPHOROUS 3.6 mg/dL (2.5-4.9); POTASSIUM 4.1 mmol/L (3.5-5.1); SODIUM 138 mmol/L (136-145); TRIGLYCERIDES 31 mg/dL (0-150)
[2018-06-26] MEDS: ENOXAPARIN NA (PORCINE) 40 MG/0.4 ML DISP.SYRIN SQ SCH (09:23)
[2018-06-26] MEDS ORDERED: ALBUTEROL SO4 2.5/IPRATROPIUM 0.5 INH SOL 3 ML VIAL.NEB. NEB ONE (09:24)
--- NOTE | 2018-06-26 09:37 | CON.CARD ---
Consult Consult Specialty:: Cardiology Referred by:: Medicine Reason for Consultation:: chest pain, hx WPW - History of Present Illness Chief Complaint: chest pain, cough, sob History of Present Illness: 38F h/o polysubstance abuse, Asthma, WPW syndrome, tobacco use with SOB, cough , chest pain for a few months. cough with brown sputum, has chest pain after coughing as well as neck and shoulder pain. Has hx WPW, does not see a neon sign installer and has declined ablation in the past for WPW. Received nebs and steroids in ER with improvement. Complains of pain in sides of her chest bilaterally, cough. No exertional pain. Saw Dr. Wylie in the past for WPW, did not follow up. - Past Medical History Pulmonary: Yes: Asthma Musculoskeletal: Yes: Chronic low back pain, Other (pia. knee pain ) - Past Surgical History Past Surgical History: Yes: Arthrosocopy (bilateral knees ), Tonsillectomy - Alcohol/Substance Use Hx Alcohol Use: No History of Substance Use: reports: None - Smoking History Smoking history: Current every day smoker Have you smoked in the past 12 months: No Aproximately how many cigarettes per day: 1 If you are a former smoker, when did you quit?: 8 years ago - Social History ADL: Independent Occupation: on disability History of Recent Travel: No Home Medications - Allergies Allergies/Adverse Reactions: Allergies Allergy/AdvReac Type Severity Reaction Status Date / Time apple Allergy Severe Difficulty Verified 06/25/18 23:56 Breathing Penicillins Allergy Verified 08/29/17 10:31 - Home Medications Home Medications: Ambulatory Orders Cyclobenzaprine HCl [Flexeril -] 10 mg PO TID #21 tablet 08/29/17 Albuterol Sulfate 0.5% [Ventolin 0.5% Nebulizing Soln. -] 1 amp NEB Q4H PRN #1 box 03/07/18 Oxycodone HCl/Acetaminophen [Percocet 10-325 mg Tablet] 1 each PO Q4HWA PRN Family Disease History - Family Disease History Family Disease History: Diabetes: Father, Heart Disease: Father, CA: Mother ( bladder CA) Review of Systems - Review of Systems Constitutional: reports: No Symptoms Eyes: reports: No Symptoms HENT: reports: No Symptoms Neck: reports: No Symptoms Cardiovascular: reports: No Symptoms Respiratory: reports: Cough Gastrointestinal: reports: No Symptoms Genitourinary: reports: No Symptoms Musculoskeletal: reports: No Symptoms Integumentary: reports: No Symptoms Neurological: reports: No Symptoms Endocrine: reports: No Symptoms Hematology/Lymphatic: reports: No Symptoms Psychiatric: reports: No Symptoms Vital Signs: Vital Signs Temperature 98.2 F 06/25/18 18:58 Pulse Rate 111 H 06/26/18 08:49 Respiratory Rate 18 06/26/18 08:49 Blood Pressure 117/66 06/26/18 08:49 O2 Sat by Pulse Oximetry (%) 100 06/26/18 08:49 Constitutional: Yes: Well Nourished, No Distress, Calm Eyes: Yes: Conjunctiva Clear, EOM Intact HENT: Yes: Atraumatic, Normocephalic Neck: Yes: Supple, Trachea Midline Respiratory: Yes: Regular, CTA Bilaterally Gastrointestinal: Yes: Normal Bowel Sounds, Soft Cardiovascular: Yes: Regular Rate and Rhythm JVD: No Carotid Bruit: No PMI: Non-Displaced Heart Sounds: Yes: S1, S2 Musculoskeletal: No: Back Pain Extremities: No: Cold Edema: No Peripheral Pulses WNL: Yes Peripheral Pulses: 2+ Left Doralis Pedis, 2+ Right Dorsalis Pedis Neurological: Yes: Alert, Oriented Psychiatric: No: Agitated - Other Data Labs, Other Data: CBC, BMP 06/26/18 08:12 06/26/18 08:12 Troponin, BNP 06/25/18 06/25/18 06/26/18 14:10 17:35 01:21 Troponin I < 0.02 < 0.02 < 0.02 Troponin, BNP 06/25/18 06/25/18 06/26/18 14:10 17:35 01:21 Troponin I < 0.02 < 0.02 < 0.02 Assessment/Plan CXR: no acute process EKG: sinus tach, PVCs, WPW tele: sinus, sinus tachycardia 38F h/o polysubstance abuse, Asthma, WPW syndrome, tobacco use with SOB, cough , chest pain SOB, wheezing, cough - likely 2/2 asthma exac - nebs, steroids per primary chest pain, neck pain - likely musculoskeletal, 2/2 coughing - trop neg x3, EKG no ischemic changes - less likely ACS WPW - no prior ablation, does not see neon sign installer - advised outpatient follow up - has seen Dr. Wylie in the past, advised to follow up
[2018-06-26] MEDS ORDERED: DOXYCYCLINE HYCLATE 100 MG VIAL ONE (09:45)
[2018-06-26] MEDS: DOXYCYCLINE INJECTION 100 MG in DEXTROSE 5%-WATER - 100 ML IVPB SCH ×3 (09:49→21:28)
[2018-06-26] MEDS ORDERED: ALPRAZolam 0.25 MG TABLET PO STA (13:14)
[2018-06-26] MEDS ORDERED: ALPRAZolam 0.25 MG TABLET ONE (14:08)
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
[2018-06-26] MEDS ORDERED: PT OWN MED DRAWER 7, Y5N ONE (20:52)
[2018-06-26] MEDS ORDERED: diphenhydrAMINE HCL 25 MG CAPSULE (FP) PO ONE (21:06)
[2018-06-26] MEDS: BENZOCAINE/MENTH/CETYLPYRD CL 1 EACH LOZENGE MM PRN (21:28)
[2018-06-27] MEDS: methylPREDNISolone NA SUCC 40 MG/1 ML VIAL IVPUSH SCH ×2 (01:22→09:10)
[2018-06-27] MEDS: oxyCODONE HCL 5 MG TABLET PO PRN (06:15)
[2018-06-27] MEDS: CYCLOBENZAPRINE HCL 10 MG TABLET (FP) PO PRN (06:16)
[2018-06-27] MEDS: BENZOCAINE/MENTH/CETYLPYRD CL 1 EACH LOZENGE MM PRN ×2 (06:16→09:11)
[2018-06-27] MEDS: ACETAMINOPHEN 325 MG TABLET (FP) PO PRN (06:16)
[2018-06-27] MEDS: ALBUTEROL SO4 0.083% IH SOL 2.5 MG/3 ML VIAL.NEB. NEB PRN (06:18)
[2018-06-27] MEDS: ALBUTEROL SO4 2.5/IPRATROPIUM 0.5 INH SOL 3 ML VIAL.NEB. NEB SCH ×2 (08:01→11:01)
[2018-06-27 08:06] LABS: BASO % 0.1 % (0-2.0); HEMATOCRIT 39.1 % (32.4-45.2); HEMOGLOBIN 12.4 GM/dL (10.7-15.3); LYMPH % 5.9 % (8-40); MCH 25.2 pg (25.7-33.7); MCHC 31.7 g/dl (32.0-36.0); MEAN CELL VOLUME 79.4 fl (80-96); MEAN PLT VOLUME 9.2 fl (7.5-11.1); MONO % 2.9 % (3.8-10.2); NEUT % 91.1 % (42.8-82.8); PLATELET COUNT 323 K/MM3 (134-434); RBC 4.92 M/mm3 (3.60-5.2); RDW 15.7 % (11.6-15.6); WHITE BLOOD COUNT 18.6 K/mm3 (4.0-10.0)
[2018-06-27 08:23] LABS: ANION GAP 12 MMOL/L (8-16); BLOOD UREA NITROGEN 16 mg/dL (7-18); CALCIUM 9.7 mg/dL (8.5-10.1); CHLORIDE 110 mmol/L (98-107); CO2 19 mmol/L (21-32); GLUCOSE,RANDOM 104 mg/dL (74-106); PHOSPHOROUS 2.6 mg/dL (2.5-4.9); POTASSIUM 4.1 mmol/L (3.5-5.1); SODIUM 141 mmol/L (136-145)
[2018-06-27] MEDS ORDERED: PT OWN MED DRAWER 7, Y5N ONE (08:52)
[2018-06-27] MEDS: NICOTINE 14 MG/24 HOURS TOPICAL PATCH TD SCH (09:10)
[2018-06-27] MEDS: ASPIRIN 81 MG CHEWABLE TABLETS PO SCH (09:10)
[2018-06-27] MEDS: ENOXAPARIN NA (PORCINE) 40 MG/0.4 ML DISP.SYRIN SQ SCH (09:10)
[2018-06-27 09:30] VITALS: BP 125/80; PULSE 114; TEMP 97.9
[2018-06-27] MEDS: DOXYCYCLINE INJECTION 100 MG in DEXTROSE 5%-WATER - 100 ML IVPB SCH (09:48)
--- NOTE | 2018-06-27 10:18 | EKG ---
Test Reason : Blood Pressure : / mmHG Vent. Rate : 105 BPM Atrial Rate : 105 BPM P-R Int : 154 ms QRS Dur : 116 ms QT Int : 380 ms P-R-T Axes : 064 046 -55 degrees QTc Int : 502 ms SINUS TACHYCARDIA WITH FREQUENT PREMATURE VENTRICULAR COMPLEXES [id number] ABNORMAL ECG WHEN COMPARED WITH ECG OF 25-JUN-2018 12:39, PREMATURE VENTRICULAR COMPLEXES ARE NOW PRESENT [id number] IS NOW PRESENT Confirmed by THEODORA ARROYO, FELIX ([id number]) on 06/27/2018 10:18:38 AM Referred By: Confirmed By:FELIX YIP MD
--- NOTE | 2018-06-27 10:20 | EKG ---
Test Reason : Blood Pressure : / mmHG Vent. Rate : 101 BPM Atrial Rate : 101 BPM P-R Int : 164 ms QRS Dur : 090 ms QT Int : 360 ms P-R-T Axes : 052 057 004 degrees QTc Int : 466 ms SINUS TACHYCARDIA NONSPECIFIC ST ABNORMALITY ABNORMAL ECG WHEN COMPARED WITH ECG OF 14-MAR-2018 16:34, NO SIGNIFICANT CHANGE WAS FOUND Confirmed by FELIX YIP MD ([id number]) on 06/27/2018 10:20:10 AM Referred By: Confirmed By:FELIX YIP MD
[2018-06-27] MEDS ORDERED: diphenhydrAMINE HCL 25 MG CAPSULE (FP) PO ONE (11:34)
[2018-06-27 11:45] LABS: ANISOCYTOSIS 1+; MACROCYTOSIS 0; OVALOCYTE 1+; PLATELET ESTIMATE NORMAL
[2018-06-27] MEDS ORDERED: guaiFENesin 600 MG TABLET.ER (FP) PO ONE (12:00)
--- NOTE | 2018-06-27 12:30 | DS ---
Physical Exam: SUBJECTIVE: Patient seen and examined at bedside. Affirms improvements in breathing. Still c/o b/l lateral chest discomfort and tightness. OBJECTIVE: Vital Signs Period Temp Pulse Resp BP Sys/Wall Pulse Ox Last 24 Hr 97.6 F-98.2 F 94-114 18-20 119-138/54-89 97-100 PHYSICAL EXAM GENERAL: A&Ox3, NAD HEENT: NC/AT, PERRLA, EOMI, MMM NECK: Trachea midline, full range of motion, supple. LUNGS: b/l wheezing improving, improving air entry HEART: RRR no m/r/g ABDOMEN: +bs, soft, NT, ND EXTREMITIES: 2+ pulses, warm, well-perfused, no edema. NEUROLOGICAL: web marketing specialist, motor, sensory systems w/o focal deficit PSYCH: highly anxious SKIN: Warm, dry, normal turgor, no rashes or lesions noted LABS Laboratory Results - last 24 hr 06/27/18 06/27/18 07:30 07:30 WBC 18.6 H RBC 4.92 Hgb 12.4 Hct 39.1 MCV 79.4 L MCH 25.2 L MCHC 31.7 L RDW 15.7 H Plt Count 323 MPV 9.2 Absolute Neuts (auto) 17.0 H Neutrophils % 91.1 H D Neutrophils % (Manual) 86.7 H Band Neutrophils % 0.0 Lymphocytes % 5.9 L D Lymphocytes % (Manual) 12.4 Monocytes % 2.9 L Monocytes % (Manual) 0 L Eosinophils % 0.0 D Eosinophils % (Manual) 0.0 Basophils % 0.1 Basophils % (Manual) 0.9 Myelocytes % (Man) 0 Promyelocytes % (Man) 0 Blast Cells % (Manual) 0 Nucleated RBC % 0 Metamyelocytes 0 Hypochromia 0 Platelet Estimate Normal Polychromasia 0 Poikilocytosis 1+ Anisocytosis 1+ Microcytosis 1+ Macrocytosis 0 Ovalocytes 1+ Sodium 141 Potassium 4.1 Chloride 110 H Carbon Dioxide 19 L Anion Gap 12 BUN 16 Creatinine 1.0 Creat Clearance w eGFR 61.72 Random Glucose 104 Calcium 9.7 Phosphorus 2.6 Magnesium 2.0 HOSPITAL COURSE: Date of Admission:06/25/18 Patient is a 38 y/o F w/ PMHx active smoker, polysubstance abuse, asthma, untreated WPW syndrome, presented with worsening shortness of breath and cough productive of brown sputum over a period of months with acute worsening over several prior days. Reports she was worried she would . States she has rodent infestation in her apartment and all her pets have recently . Cardiology was consulted and recommended outpatient followup for WPW treatment, no cardiac component of presentation and no inpatient intervention indicated. She was treated with bronchodilators, steroids, and empiric antibiotics. Additionally she was counseled on smoking cessation and started on nicotine patches. She was discharged to complete PO steroid course, with new prescription for nicotine patches, and with outpatient followup referrals to primary care, cardiology, and pulmonology. Date of Discharge: 06/27/18 Minutes to complete discharge: 40 Discharge Summary Reason For Visit: EXACERBATION OF ASTHMA.ACUTE NECK PAIN,WOFF-PARK Current Active Problems Asthma flare (Acute) Chest pain (Acute) Neck pain, acute (Acute) WPW (Aomvy-Vkjclpujw-Atzdl syndrome) (Acute) Condition: Stable - Instructions Diet, Activity, Other Instructions: You were hospitalized due to asthma exacerbation. You were treated with nebulizers, antibiotics, and steroids. You were also counseled on smoking cessation and started on nicotine patches. You were seen and evaluated by the cardiology service, which determined that there were no acute issues with your heart. You require outpatient followup with cardiology for management of Adam- Parkinson-White syndrome, with pulmonology for better control of your asthma, and with primary care for assistance in smoking cessation and general medical management. Referrals have been made on your behalf. Please see these providers within 1 week of your discharge. Prescriptions to complete your course of steroids and for nicotine patches have been sent to your pharmacy in the meantime. Otherwise resume your home medications and do not make changes to your medication regimen without first consulting your doctors. If you experience worsening shortness of breath, chest pain, fever, chills, or any other new or concerning symptoms, please return to the Emergency Department. Referrals: Bennett Desir MD [Staff Physician] - Brandon Santiago MD [Non Staff, Medical] - Krys Tomlin MD [Staff Physician] - Disposition: HOME - Home Medications Comprehensive Discharge Medication List: Ambulatory Orders Cyclobenzaprine HCl [Flexeril -] 10 mg PO TID #21 tablet 08/29/17 Albuterol Sulfate 0.5% [Ventolin 0.5% Nebulizing Soln. -] 1 amp NEB Q4H PRN #1 box 03/07/18 Oxycodone HCl/Acetaminophen [Percocet 10-325 mg Tablet] 1 each PO Q4HWA PRN Nicotine Patch [Nicoderm Patch -] 14 mg TD DAILY #30 patch 06/27/18 predniSONE [Deltasone -] 40 mg PO DAILY #3 tablet 06/27/18 This patient is new to me today: Yes Date on this admission: 06/27/18 Emergency Visit: Yes ED Registration Date: 06/25/18 Care time: The patient presented to the Emergency Department on the above date and was hospitalized for further evaluation of their emergent condition. Critical Care patient: No - Discharge Referral Referred to [facility] Med P.C.: No
--- NOTE | 2018-06-27 19:01 | PN ---
Teaching Attending Note Name of Resident: Francisco Young ATTENDING PHYSICIAN STATEMENT I saw and evaluated the patient. I reviewed the resident's note and discussed the case with the resident. I agree with the resident's findings and plan as documented. Last Vital Signs Temp Pulse Resp BP Pulse Ox 97.9 F 114 H 20 125/80 97 06/27/18 09:29 06/27/18 09:29 06/27/18 09:29 06/27/18 09:29 06/27/18 09:30 Laboratory Results - last 24 hr 06/27/18 06/27/18 07:30 07:30 WBC 18.6 H RBC 4.92 Hgb 12.4 Hct 39.1 MCV 79.4 L MCH 25.2 L MCHC 31.7 L RDW 15.7 H Plt Count 323 MPV 9.2 Absolute Neuts (auto) 17.0 H Neutrophils % 91.1 H D Neutrophils % (Manual) 86.7 H Band Neutrophils % 0.0 Lymphocytes % 5.9 L D Lymphocytes % (Manual) 12.4 Monocytes % 2.9 L Monocytes % (Manual) 0 L Eosinophils % 0.0 D Eosinophils % (Manual) 0.0 Basophils % 0.1 Basophils % (Manual) 0.9 Myelocytes % (Man) 0 Promyelocytes % (Man) 0 Blast Cells % (Manual) 0 Nucleated RBC % 0 Metamyelocytes 0 Hypochromia 0 Platelet Estimate Normal Polychromasia 0 Poikilocytosis 1+ Anisocytosis 1+ Microcytosis 1+ Macrocytosis 0 Ovalocytes 1+ Sodium 141 Potassium 4.1 Chloride 110 H Carbon Dioxide 19 L Anion Gap 12 BUN 16 Creatinine 1.0 Creat Clearance w eGFR 61.72 Random Glucose 104 Calcium 9.7 Phosphorus 2.6 Magnesium 2.0 Discharge Medications Medication Instructions Recorded Cyclobenzaprine HCl [Flexeril -] 10 mg PO TID #21 tablet 08/29/17 Oxycodone HCl/Acetaminophen 1 each PO Q4HWA PRN 06/25/18 [Percocet 10-325 mg Tablet] Albuterol 0.083% Nebulizer Cammie 1 neb NEB Q4H #10 vial 06/27/18 [Ventolin 0.083% Nebulizer Soln -] Nicotine Patch [Nicoderm Patch -] 14 mg TD DAILY #30 patch 06/27/18 predniSONE [Deltasone -] 40 mg PO DAILY #3 tablet 06/27/18
== END 2018-06-27 14:23 | disposition home or self-care (01) ==
LOC: JER 12:31 → JERBED 16:44 → J4S 06-26 17:59
PROC: 3E0333Z Introduction of Anti-inflammatory into Peripheral Vein, Percutaneous Approach (ICD-10-PCS; principal; 2018-06-25)
PROC: 3E0337Z Introduction of Electrolytic and Water Balance Substance into Peripheral Vein, Percutaneous Approach (ICD-10-PCS; 2018-06-25)
PROC: 3E033GC Introduction of Other Therapeutic Substance into Peripheral Vein, Percutaneous Approach (ICD-10-PCS; 2018-06-25)
PROC: 3E013GC Introduction of Other Therapeutic Substance into Subcutaneous Tissue, Percutaneous Approach (ICD-10-PCS; 2018-06-25)
PROC: 3E0F7GC Introduction of Other Therapeutic Substance into Respiratory Tract, Via Natural or Artificial Opening (ICD-10-PCS; 2018-06-25)
DX: J45.901 Unspecified asthma with (acute) exacerbation (principal); R07.89 Other chest pain; R00.0 Tachycardia, unspecified; M54.2 Cervicalgia; I45.6 Pre-excitation syndrome; M54.9 Dorsalgia, unspecified; G89.29 Other chronic pain; I48.0 Paroxysmal atrial fibrillation; Z87.891 Personal history of nicotine dependence; Z88.0 Allergy status to penicillin
CPT/HCPCS: 36415; 71045-TC-FY; 80048; 80053; 80061; 80307; 82550; 83721; 83735; 84100; 84443; 84484; 84703; 85025; 85027; 87804; 93005; 93010; 94010; 94640; 99285-25; G0378; J7030

== ENCOUNTER 2018-12-17 21:36 | Inpatient (IN) | payer BC, OTHER ==
[2018-12-17] MEDS ORDERED: ACETAMINOPHEN INJECTION 100 ML IVPB ONE (21:54)
[2018-12-17 22:13] LABS: BASO % 1.1 % (0-2.0); EOS % 1.8 % (0-4.5); HEMATOCRIT 42.4 % (32.4-45.2); HEMOGLOBIN 13.9 GM/dL (10.7-15.3); LYMPH % 30.8 % (8-40); MCH 25.6 pg (25.7-33.7); MCHC 32.8 g/dl (32.0-36.0); MEAN PLT VOLUME 8.9 fl (7.5-11.1); MONO % 7.7 % (3.8-10.2); NEUT % 58.6 % (42.8-82.8); PLATELET COUNT 379 K/MM3 (134-434); RBC 5.43 M/mm3 (3.60-5.2); RDW 17.7 % (11.6-15.6); WHITE BLOOD COUNT 13.5 K/mm3 (4.0-10.0)
[2018-12-17] MEDS ORDERED: MORPHINE SULFATE 2 MG/ML VIAL ONE ×2 (22:21→23:31)
[2018-12-17 22:28] LABS: INR 1.02 (0.83-1.09)
[2018-12-17] MEDS ORDERED: morphine CARPU-JECT 2 MG/1 ML DISP.SYRIN IVPUSH ONE ×2 (22:30→23:16)
--- NOTE | 2018-12-17 22:53 | PDOC ---
History of Present Illness - General Chief Complaint: Chest Pain Stated Complaint: CHEST PAIN Time Seen by Provider: 12/17/18 21:51 - History of Present Illness Initial Comments: 12/17/18 22:53 38 yo f w/ PMH polysubstance abuse, Asthma, WPW syndrome (untreated) who comes into the ED for evaluation of 10/10 left sided back pain worsening over the past 3 days. Patient states that she's on chronic pain meds but ran out a few days ago. Also recently started prednisone on her own. States the her left back is in excruciating pain, even slightly touching the skin of her back is 10/10 pain and taking a deep breath triggers the pain. She presents tachycardic and diaphretic. Denies fever, abdominal pain, dysuria, diarrhea or constipation. Past History - Past Medical History Allergies/Adverse Reactions: Allergies Allergy/AdvReac Type Severity Reaction Status Date / Time apple Allergy Severe Difficulty Verified 12/17/18 21:37 Breathing Penicillins Allergy Verified 12/17/18 21:37 Home Medications: Ambulatory Orders Cyclobenzaprine HCl [Flexeril -] 10 mg PO TID #21 tablet 08/29/17 Oxycodone HCl/Acetaminophen [Percocet 10-325 mg Tablet] 1 each PO Q4HWA PRN Albuterol 0.083% Nebulizer Cammie [Ventolin 0.083% Nebulizer Soln -] 1 neb NEB Q4H #10 vial 06/27/18 Nicotine Patch [Nicoderm Patch -] 14 mg TD DAILY #30 patch 06/27/18 predniSONE [Deltasone -] 40 mg PO DAILY #3 tablet 06/27/18 Asthma: Yes Cardiac Disorders: Yes (WPW,a.fib) COPD: No - Surgical History Cardiac Surgery: No Orthopedic Surgery: (arthroscopic knee surgery x 2,back surgeries 2months ago) - Immunization History Immunization Up to Date: Yes - Suicide/Smoking/Psychosocial Hx Smoking Status: Yes Smoking History: Current every day smoker Have you smoked in the past 12 months: Yes Number of Cigarettes Smoked Daily: 20 If you are a former smoker, when did you quit?: a couple of days ago Information on smoking cessation initiated: No 'Breaking Loose' booklet given: 06/26/18 Hx Alcohol Use: No Drug/Substance Use Hx: Yes (marajuana) Substance Use Type: Marijuana Hx Substance Use Treatment: No Review of Systems - Review of Systems Able to Perform ROS?: Yes Is the patient limited Bulgarian proficient: No Constitutional: Yes: Diaphoresis HEENTM: No: Symptoms Reported Respiratory: Yes: See HPI Cardiac (ROS): Yes: See HPI ABD/GI: No: Symptoms Reported : No: Symptoms Reported Musculoskeletal: Yes: See HPI Integumentary: No: Symptoms Reported Neurological: No: Symptoms reported All Other Systems: Reviewed and Negative *Physical Exam - Vital Signs Last Vital Signs Temp Pulse Resp BP Pulse Ox 98.3 F 98 H 22 H 138/98 100 12/17/18 21:38 12/17/18 22:24 12/17/18 22:24 12/17/18 22:24 12/17/18 22:24 - Physical Exam General Appearance: Yes: Nourished, Appropriately Dressed. No: Apparent Distress HEENT: positive: EOMI, MAY, Normal ENT Inspection Respiratory/Chest: positive: Lungs Clear, Normal Breath Sounds. negative: Chest Tender, Respiratory Distress Cardiovascular: positive: S1, S2, Tachycardia. negative: Regular Rhythm Gastrointestinal/Abdominal: positive: Normal Bowel Sounds, Flat, Soft. negative : Tender Musculoskeletal: positive: Other (hyperesthesia of the left back) Extremity: positive: Normal Capillary Refill, Normal Inspection, Other. negative: Normal Range of Motion Integumentary: positive: Normal Color, Warm, Other (No Zoster visualized. ) Neurologic: positive: Fully Oriented, Alert, Normal Response, Respond to painful stimul. negative: Normal Mood/Affect ED Treatment Course - LABORATORY CBC & Chemistry Diagram: 12/17/18 22:05 12/17/18 22:05 - ADDITIONAL ORDERS Additional order review: Laboratory Results 12/17/18 12/17/18 12/17/18 22:05 22:05 22:05 PT with INR 12.00 INR 1.02 Sodium 140 Potassium 4.4 Chloride 105 Carbon Dioxide 23 Anion Gap 12 BUN 12.5 Creatinine 0.9 Est GFR (CKD-EPI)AfAm 93.35 Est GFR (CKD-EPI)NonAf 80.54 Random Glucose 81 Calcium 10.0 Total Bilirubin 0.7 AST 25 ALT 23 Alkaline Phosphatase 91 Creatine Kinase 105 Troponin I < 0.02 Total Protein 7.8 Albumin 4.7 Lipase 40 L Beta HCG, Quant 12/17/18 22:05 PT with INR INR Sodium Potassium Chloride Carbon Dioxide Anion Gap BUN Creatinine Est GFR (CKD-EPI)AfAm Est GFR (CKD-EPI)NonAf Random Glucose Calcium Total Bilirubin AST ALT Alkaline Phosphatase Creatine Kinase Troponin I Total Protein Albumin Lipase Beta HCG, Quant < 1.0 12/17/18 22:05 RBC 5.43 H MCV 78.0 L MCHC 32.8 RDW 17.7 H MPV 8.9 Neutrophils % 58.6 D Lymphocytes % 30.8 D Monocytes % 7.7 D Eosinophils % 1.8 D Basophils % 1.1 D - RADIOLOGY Radiology Studies Ordered: Category Date Time Status ABDOMEN/PELVIS CTA W/WO CONTR [CT] Stat CT Scan 12/17/18 22:28 Taken CHEST CTA [CT] Stat CT Scan 12/17/18 22:16 Taken - Medications Given in the ED: ED Medications Discontinued Medications Generic Name Dose Route Start Last Admin Trade Name Freq PRN Reason Stop Dose Admin Ketorolac Tromethamine 15 mg 12/17/18 23:17 12/17/18 23:30 Toradol Injection - IVPUSH 12/17/18 23:18 15 mg ONCE ONE Administration Morphine Sulfate 2 mg 12/17/18 23:16 12/17/18 23:30 Morphine Injection - IVPUSH 12/17/18 23:17 2 mg ONCE ONE Administration Morphine Sulfate 2 mg 12/17/18 22:30 12/17/18 22:30 Morphine Injection - IVPUSH 12/17/18 22:31 2 mg ONCE ONE Administration Medical Decision Making - Medical Decision Making 12/17/18 23:38 38 yo f w/ PMH polysubstance abuse, Asthma, WPW syndrome (untreated) who comes into the ED for evaluation of 10/10 left sided back pain worsening over the past 3 days. Patient states that she's on chronic pain meds but ran out a few days ago. Also recently started prednisone on her own. Morphione for pain. CTA chest/abdomen/pelvis ordered to r/o PE/dissection 12/18/18 00:25 CTA read + called radiologist for supplemental read: No PE or dissection, however lung tissue infiltrate vs atelectasis over lower left lobe. Will treat with doxycycline as patient is allergic to penicillins *DC/Admit/Observation/Transfer Diagnosis at time of Disposition: Pneumonia - Discharge Dispostion Decision to Admit order: Yes - Referrals Referrals: Brandon Santiago MD [Primary Care Provider] - - Patient Instructions - Post Discharge Activity
[2018-12-17 23:04] LABS: ALBUMIN 4.7 g/dl (3.4-5.0); BILIRUBIN,TOTAL 0.7 mg/dL (0.2-1); BLOOD UREA NITROGEN 12.5 mg/dL (7-18); CREATININE 0.9 mg/dL (0.55-1.3); POTASSIUM 4.4 mmol/L (3.5-5.1); TOT PROT 7.8 g/dl (6.4-8.2)
[2018-12-17] MEDS ORDERED: KETOROLAC TROMETHAMINE 15 MG/ML VIAL IVPUSH ONE (23:17)
--- NOTE | 2018-12-17 23:25 | PDOC ---
Attending Attestation - Resident Resident Name: Fernie Dawson - ED Attending Attestation I have performed the following: I have examined & evaluated the patient, The case was reviewed & discussed with the resident, I agree w/resident's findings & plan - HPI HPI: 12/17/18 23:20 Pt comes with tachycardia, cold sweats, hypotension, grabbing her left midback; pt has Blood pressures that are unequal in bilateral arms. We are concerned for PE, dissection, pneumothorax -- pt states that she was coughing heavily and she felt a "pop" and ever since had difficulty with back pain and sweats pt also states that she smokes pot and cigs; didn;t smoke pot today and she denies any other drug use Pt sent for CTA chest abd pelvis to r/o dissection, PE, pneumonia. 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 - Physicial Exam PE: 12/17/18 23:25 Agree with resident exam - Medical Decision Making 12/17/18 23:25 Pt has elevated WBC with abnormal diff: high eosinophils, low Neutrophils. Pt's other labs are normal. 12/17/18 23:28 While we were caring for patient initially, her HR spikes to 154, and then goes away. 12/18/18 00:37 Patient Name: JASON ROBISON PRELIMINARY REPORT FROM IMAGING DELICATESSEN CLERK EXAM: CTA chest and CTA abdomen and CTA pelvis DATE: 2018-12-17 22:33:12 IMAGES: [id number] HISTORY: dissection REPORT: CTA of the chest, abdomen and pelvis obtained with iv contrast. Small right lung subpleural nodule image 45/207. Coarse interstitial markings. Mild atelectasis. The aorta is patent Major branches off the aorta appear patent including superior mesenteric and celiac and renal arteries. Inferior mesenteric is seen. Suspect uterine fibroids. Small pelvic free fluid. Pelvic images show no obstruction or abscess. The iliac and common femoral arteries appear patent in the visualized portion. Small right nephrolithiasis. No aortic dissection of chest, abdomen or pelvis. No hematoma seen ADDENDUM Comments: Shane Calabrese MD wrote on Dec 18, 2018 at 12:22 AM: Referring Physician: POLINA ROBISON Suspect focal atelectasis at the lingula, versus infiltrate. 12/18/18 00:38 Pt will be admitted for a pneumonia; PCN allergy; I'll rx with doxy 100BID IV. Pt will require pulm consult and cards consult. Heart Score/ECG Review - ECG Intrepretation Rhythm: Regular Rhythm - Alder Alder: Normal - P and FL Delta Wave(s) Present: No WPW: No - QRS Poor R Wave Progression: No Q Wave Present: No - ST and T Early Repolarization: No Non Specific ST-T Wave changes: No Flattened T Waves: No Prolonged Q-T Interval: No
[2018-12-17] MEDS ORDERED: KETOROLAC TROMETHAMINE 15 MG/ML VIAL ONE (23:31)
[2018-12-17 23:36] VITALS: BMI 30.4
[2018-12-18] MEDS ORDERED: DOXYCYCLINE INJECTION 100 MG in DEXTROSE 5%-WATER - 100 ML IVPB ONE (00:22)
[2018-12-18] MEDS ORDERED: CYCLOBENZAPRINE HCL 10 MG TABLET (FP) PO ONE (00:42)
[2018-12-18] MEDS ORDERED: CYCLOBENZAPRINE HCL 10 MG TABLET (FP) ONE ×2 (00:45→08:47)
--- NOTE | 2018-12-18 02:09 | HP ---
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 for evaluation of 10/10 left sided back pain worsening over the past 3 days.Pt states that she was coughing up "lots of black stuff" and she felt a "pop" and ever since had difficulty with back pain. Patient explains that she has been suffering from chronic back pain since she got into an accident at her job . Since then she has been on chronic pain meds but ran out a few days ago. However, this pain as per patient is different from the previous ones and that she has been drenched in sweats as well. Pt describes that her left back is in excruciating pain, even slightly touching the skin of her back is 10/10 pain and taking a deep breath triggers the pain;as a result she has been preventing herself from coughing.Pt ensures that she was prescribed prednisone by her manufacturing plant technician which she admits to be taking inconsistently. Pt endorsed chest pain however the chest pain is nothing new as she has been having it for over a year. She feels short of breath but denies fever, abdominal pain, dysuria, diarrhea or constipation.Pt also states that she smokes pot everyday for years now and cigarettes 1PPD but also quit a couple of days ago; she denies any other drug use. ER course was notable for: (1) CTA r/o Aortic dissection as patient was found to have unequal pulses. No acute pathology (2) Chest CT was also unremarkable just small left sided alveolar atelectasis (3) Pain control with Morphine, toradol inj, tylenol, and flexeril with no improvement (4) CBC, CMP, D-dimers elevated to 866, urine toxicology Recent Travel:none PAST MEDICAL HISTORY: as noted above PAST SURGICAL HISTORY: arthroscopic knee surgery x2, back surgery 2 months ago Social History: Smokin PPD quit a couple days ago Alcohol:denies Drugs: marijuana daily but no other drugs Allergies apple Allergy (Severe, Verified 12/17/18 21:37) Difficulty Breathing Penicillins Allergy (Verified 12/17/18 21:37) HOME MEDICATIONS: Home Medications Medication Instructions Recorded Cyclobenzaprine HCl [Flexeril -] 10 mg PO TID #21 tablet 08/29/17 Oxycodone HCl/Acetaminophen 1 each PO Q4HWA PRN 06/25/18 [Percocet 10-325 mg Tablet] Albuterol 0.083% Nebulizer Cammie 1 neb NEB Q4H #10 vial 06/27/18 [Ventolin 0.083% Nebulizer Soln -] Nicotine Patch [Nicoderm Patch -] 14 mg TD DAILY #30 patch 06/27/18 predniSONE [Deltasone -] 40 mg PO DAILY #3 tablet 06/27/18 REVIEW OF SYSTEMS CONSTITUTIONAL: diaphoresis Absent: fever, chills, generalized weakness, malaise, loss of appetite, weight change HEENT: Absent: rhinorrhea, nasal congestion, throat pain, throat swelling, difficulty swallowing, mouth swelling, ear pain, eye pain, visual changes CARDIOVASCULAR: chest pain Absent: syncope, palpitations, irregular heart rate, lightheadedness, peripheral edema RESPIRATORY: cough, shortness of breath Absent: dyspnea with exertion, orthopnea, wheezing, stridor, hemoptysis GASTROINTESTINAL: Absent: abdominal pain, abdominal distension, nausea, vomiting, diarrhea, constipation, melena, hematochezia GENITOURINARY: Absent: dysuria, frequency, urgency, hesitancy, hematuria, flank pain, genital pain MUSCULOSKELETAL: back pain and severe tenderness Absent: myalgia, arthralgia, joint swelling, neck pain SKIN: Absent: rash, itching, pallor HEMATOLOGIC/IMMUNOLOGIC: Absent: easy bleeding, easy bruising, lymphadenopathy, frequent infections ENDOCRINE: Absent: unexplained weight gain, unexplained weight loss, heat intolerance, cold intolerance NEUROLOGIC: Absent: headache, focal weakness or paresthesias, dizziness, unsteady gait, seizure, mental status changes, bladder or bowel incontinence PSYCHIATRIC: Absent: anxiety, depression, suicidal or homicidal ideation, hallucinations. PHYSICAL EXAMINATION Vital Signs - 24 hr 12/17/18 12/17/18 12/17/18 21:38 21:44 22:24 Temperature 98.3 F Pulse Rate 140 H Pulse Rate [ 98 H Apical] Respiratory 26 H 22 H Rate Blood Pressure 0/0 L Blood Pressure 138/98 [Left Arm] O2 Sat by Pulse 100 98 100 Oximetry (%) 12/18/18 01:13 Temperature Pulse Rate Pulse Rate [ 104 H Apical] Respiratory 20 Rate Blood Pressure Blood Pressure 119/98 [Left Arm] O2 Sat by Pulse 98 Oximetry (%) GENERAL: Awake, alert, and fully oriented, in moderate distress. HEAD: Normal with no signs of trauma. EYES: Pupils equal, round and reactive to light, extraocular movements intact, sclera anicteric, conjunctiva clear. No lid lag. EARS, NOSE, THROAT: oropharynx clear without exudates. Moist mucous membranes. NECK: Normal range of motion, supple without lymphadenopathy, JVD, or masses. LUNGS: Breath sounds equal, clear to auscultation bilaterally. No wheezes, and no crackles. No accessory muscle use. HEART: Regular rate and rhythm, normal S1 and S2 without murmur, rub or gallop. ABDOMEN: Soft, nontender, not distended, normoactive bowel sounds, no guarding, no rebound, no masses. No hepatomegaly or splenomegaly. MUSCULOSKELETAL: Normal range of motion at all joints. No bony deformities or tenderness. Mid Back pain UPPER EXTREMITIES: 2+ pulses, warm, well-perfused. No cyanosis. No clubbing. No peripheral edema. LOWER EXTREMITIES: 2+ pulses, warm, well-perfused. No calf tenderness. No peripheral edema. NEUROLOGICAL: Cranial nerves II-XII intact. Normal speech. Normal gait. Laboratory Results - last 24 hr 12/17/18 12/17/18 12/17/18 22:05 22:05 22:05 WBC 13.5 H RBC 5.43 H Hgb 13.9 Hct 42.4 MCV 78.0 L MCH 25.6 L MCHC 32.8 RDW 17.7 H Plt Count 379 MPV 8.9 Absolute Neuts (auto) 7.9 Neutrophils % 58.6 D Lymphocytes % 30.8 D Monocytes % 7.7 D Eosinophils % 1.8 D Basophils % 1.1 D Nucleated RBC % 0 PT with INR INR D-Dimer Sodium Potassium Chloride Carbon Dioxide Anion Gap BUN Creatinine Est GFR (CKD-EPI)AfAm Est GFR (CKD-EPI)NonAf Random Glucose Calcium Total Bilirubin AST ALT Alkaline Phosphatase Creatine Kinase 105 Troponin I < 0.02 Total Protein Albumin Lipase Beta HCG, Quant < 1.0 12/17/18 12/17/18 12/18/18 22:05 22:05 00:24 WBC RBC Hgb Hct MCV MCH MCHC RDW Plt Count MPV Absolute Neuts (auto) Neutrophils % Lymphocytes % Monocytes % Eosinophils % Basophils % Nucleated RBC % PT with INR 12.00 INR 1.02 D-Dimer 866 H Sodium 140 Potassium 4.4 Chloride 105 Carbon Dioxide 23 Anion Gap 12 BUN 12.5 Creatinine 0.9 Est GFR (CKD-EPI)AfAm 93.35 Est GFR (CKD-EPI)NonAf 80.54 Random Glucose 81 Calcium 10.0 Total Bilirubin 0.7 AST 25 ALT 23 Alkaline Phosphatase 91 Creatine Kinase Troponin I Total Protein 7.8 Albumin 4.7 Lipase 40 L Beta HCG, Quant ASSESSMENT/PLAN: 38 yo f w/ PMH marijuana abuse, Asthma, 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 for evaluation of 10/ left sided back pain worsening over the past 3 days and cough. Back pain most likely muscular in origin Flexeril 10mg PO TID ibuprofen 400 mg Cough WBC 13.5 but eos diff higher than neutrophil. poss asthmatic source? CXR showed focal atelectasis at the lingula, versus infiltrate. non productive cough, no fevers Unequal Blood pressures in arms CTA prelim report: Small right lung subpleural nodule image 45/207. Coarse interstitial markings. Mild atelectasis. The aorta is patent Major branches off the aorta appear patent including superior mesenteric and celiac and renal arteries. Inferior mesenteric is seen. Suspect uterine fibroids. Small pelvic free fluid. Pelvic images show no obstruction or abscess. The iliac and common femoral arteries appear patent in the visualized portion. Small right nephrolithiasis. No aortic dissection of chest, abdomen or pelvis. No hematoma seen Ddimers 866 but CTA neg for PE Asthma Ventolin 1neb Q4h DVT Hep subQ Visit type - Emergency Visit Emergency Visit: Yes ED Registration Date: 12/18/18 Care time: The patient presented to the Emergency Department on the above date and was hospitalized for further evaluation of their emergent condition. - New Patient This patient is new to me today: Yes Date on this admission: 12/18/18 - Critical Care Critical Care patient: No ATTENDING PHYSICIAN STATEMENT I saw and evaluated the patient. I reviewed the resident's note and discussed the case with the resident. I agree with the resident's findings and plan as documented. SUBJECTIVE: OBJECTIVE: ASSESSMENT AND PLAN:
[2018-12-18] MEDS ORDERED: IBUPROFEN 400 MG TABLET (FP) PO PRN (02:13)
[2018-12-18] MEDS ORDERED: ALBUTEROL SO4 0.083% IH SOL 2.5 MG/3 ML VIAL.NEB. NEB PRN (02:13)
[2018-12-18] MEDS ORDERED: CYCLOBENZAPRINE HCL 10 MG TABLET (FP) PO PRN (03:00)
[2018-12-18] MEDS ORDERED: HEPARIN NA (PORCINE) 5,000 UNITS/ML 1ML VIAL SQ SCH (06:00)
[2018-12-18] MEDS ORDERED: LIDOCAINE 5% TOPICAL PATCH TP ONE (06:04)
[2018-12-18] MEDS ORDERED: HEPARIN NA (PORCINE) 5,000 UNITS/ML 1ML VIAL ONE (06:19)
[2018-12-18] MEDS ORDERED: LIDOCAINE 5% TOPICAL PATCH ONE (06:19)
[2018-12-18] MEDS ORDERED: oxyCODONE HCL 10 MG SUSTAINED ACTING TABLET PO ONE (06:20)
--- NOTE | 2018-12-18 06:23 | PN ---
Teaching Attending Note Name of Resident: Gricelda Ji ATTENDING PHYSICIAN STATEMENT I saw and evaluated the patient. I reviewed the resident's note and discussed the case with the resident. I agree with the resident's findings and plan as documented. SUBJECTIVE: 38 yo f w/ PMH marijuana abuse, Asthma, WPW syndrome (refused ablation) came to ER diaphoretic, c/o left sided back pain x1 day. Can ambulate well. Said she takes prednisone intermittently for her asthma. Took a dose yesterday. Currently denied shortness of breath or cough. OBJECTIVE: Last Vital Signs Temp Pulse Resp BP Pulse Ox 98.2 F 76 20 99/64 99 12/18/18 05:57 12/18/18 05:57 12/18/18 05:57 12/18/18 05:57 12/18/18 05:57 gen -irritable, nontoxic chest cta b/l, no wheezes, rales, or rhonchi abdomen-obese back left perispinal tenderness to palpation skin- no rashes ct chest- left lingula atelectasis Abnormal Lab Results 12/17/18 12/17/18 12/18/18 22:05 22:05 00:24 WBC 13.5 H RBC 5.43 H MCV 78.0 L MCH 25.6 L RDW 17.7 H D-Dimer 866 H Lipase 40 L imaging reviewed ASSESSMENT AND PLAN: #Back pain - appears to be perispinal, likely musculoskeletal. Probable muscle spasm. Patient anxious and demanding IV pain medications. -flexeril 10mg po prn -ibuprofen 400mg po q4hrs prn -check istop for opiates #leukocytosis- noted to be chronic. Possibly secondary to prednisone. Paucity of clinical or radiological evidence to suggest pneumonia. -monitor wbc -counseled to stop prednisone if no indication -no prednisone taper since she says she only took one day #tobacco/marijuana -counseled on smoking cessation #WPW- HR has normalized, refused ablation in past -cardiology referral dvt ppx
[2018-12-18] MEDS ORDERED: oxyCODONE HCL 10 MG SUSTAINED ACTING TABLET ONE (06:37)
--- NOTE | 2018-12-18 08:15 | DS ---
Physical Exam: SUBJECTIVE: Patient seen and examined OBJECTIVE: Vital Signs Period Temp Pulse Resp BP Sys/Wall Pulse Ox Last 24 Hr 98.2 F-98.3 F 76-140 20-26 0-138/0-98 98-100 PHYSICAL EXAM GENERAL: The patient is awake, alert, and fully oriented, in no acute distress. HEAD: Normal with no signs of trauma. EYES: PERRL, extraocular movements intact, sclera anicteric, conjunctiva clear. ENT: Ears normal, nares patent, oropharynx clear without exudates, moist mucous membranes. NECK: Trachea midline, full range of motion, supple. LUNGS: Breath sounds equal, clear to auscultation bilaterally, no wheezes, no crackles, no accessory muscle use. HEART: Regular rate and rhythm, S1, S2 without murmur, rub or gallop. ABDOMEN: Soft, nontender, nondistended, normoactive bowel sounds, no guarding, no rebound, no hepatosplenomegaly, no masses. EXTREMITIES: 2+ pulses, warm, well-perfused, no edema. NEUROLOGICAL: Cranial nerves II through XII grossly intact. Normal speech, gait not observed. PSYCH: Normal mood, normal affect. SKIN: Warm, dry, normal turgor, no rashes or lesions noted. LABS Laboratory Results - last 24 hr 12/17/18 12/17/18 12/17/18 22:05 22:05 22:05 WBC 13.5 H RBC 5.43 H Hgb 13.9 Hct 42.4 MCV 78.0 L MCH 25.6 L MCHC 32.8 RDW 17.7 H Plt Count 379 MPV 8.9 Absolute Neuts (auto) 7.9 Neutrophils % 58.6 D Lymphocytes % 30.8 D Monocytes % 7.7 D Eosinophils % 1.8 D Basophils % 1.1 D Nucleated RBC % 0 PT with INR INR D-Dimer Sodium Potassium Chloride Carbon Dioxide Anion Gap BUN Creatinine Est GFR (CKD-EPI)AfAm Est GFR (CKD-EPI)NonAf Random Glucose Calcium Total Bilirubin AST ALT Alkaline Phosphatase Creatine Kinase 105 Troponin I < 0.02 Total Protein Albumin Lipase Beta HCG, Quant < 1.0 12/17/18 12/17/18 12/18/18 22:05 22:05 00:24 WBC RBC Hgb Hct MCV MCH MCHC RDW Plt Count MPV Absolute Neuts (auto) Neutrophils % Lymphocytes % Monocytes % Eosinophils % Basophils % Nucleated RBC % PT with INR 12.00 INR 1.02 D-Dimer 866 H Sodium 140 Potassium 4.4 Chloride 105 Carbon Dioxide 23 Anion Gap 12 BUN 12.5 Creatinine 0.9 Est GFR (CKD-EPI)AfAm 93.35 Est GFR (CKD-EPI)NonAf 80.54 Random Glucose 81 Calcium 10.0 Total Bilirubin 0.7 AST 25 ALT 23 Alkaline Phosphatase 91 Creatine Kinase Troponin I Total Protein 7.8 Albumin 4.7 Lipase 40 L Beta HCG, Quant HOSPITAL COURSE: Date of Admission:12/18/18 Date of Discharge: 12/18/18 Admission requested from ER for pneumonia; there is no pneumonia on CXR or preliminary imaging of CTA. DDimer elevated so whole body CTA was done for some reason. No acute abnormalities found. Per HPI was requesting pain medicine and ran out. I will not provide any pain medication as I am not her outpatient provider and she should followup with their office; i have no compelling indication to prescribe and have no lab or imaging abnormalities to explain the patient's chronic muscle pain. First line agents for this include NSAIDs, PT, and muscle relaxants if first line agents fail. Given some behaviors described in the admitting history and physical I would be uncomfortably prescribing any narcotic-type pain medication as well. She needs to follow with the outpatient provider who gave her this medication in the first place. Resident note inacurately describes hematologic abnormalities that are in no way present on available labs. Furthermore she is positive for cannabis so I cannot give her medications. She is ambulating well and denies neuropathy. She tells me the back pain started 1 day ago when she was coughing. No current cough or SOB. CXR negative for pneumonia. CT with more atelectasis picture. She is further not documented on [facility] [employer] monitoring system as getting ANY controlled substances since 02/25/2018. She was prescribed 3 different opioids from 2 different providers. She has no documented current use in surrounding states, either. Interestingly thoughout 2018 she was getting controlled substances filled in [place]. Placed copy in chart. She has no red flag symptoms with her back pain including saddle anesthesia, etc. I recommend PT, NSAIDs, PRN Flexeril, and lidocaine patch. Also gave gabapentin She refused ABG, she denied any SOB to respiratory or myself Sending home with peak flow meter. Can give pred burst, pulm referral for PFTs. Full Code Minutes to complete discharge: 33 Discharge Summary Reason For Visit: PNEUMONIA Current Active Problems Pneumonia (Acute) Condition: Stable - Instructions Diet, Activity, Other Instructions: You are being discharged; you were treated for mild asthma exacerbation. You' re being sent home on a 5 day taper of prednisone. Please use your albuterol as needed and stop smoking all substances. You were started on a new medication called singulair that you should take daily. Please followup with pulmonary medicine for PFTs and initial visit Please see Primary Care in 3-5 days (referral made) for chronic medical issues Please call rehab for help as necessary for any substance-related issues. Please see your provider for refills for your controlled substances as needed. You should followup with your prescriber for refills on your percocet You're being prescribed a short course of flexeril, ibuprofen, and lidocaine patches for your chronic back pain Please monitor your peak flows at home Resume your regular diet Resume your activity level as tolerated. Return to the hospital with worsening shortness of breath, fevers, or chest pain. Thank you for choosing [facility]. Referrals: Johnathon Hansen MD [Staff Physician] - (Followup with resident clinic in 3-5 days ) Bennett Desir MD [Staff Physician] - (Followup for PFTs and for pulmonary referral within 1 week) Olive Linder NP [Nurse Practitioner] - (Followup for rehab as needed) Disposition: HOME - Home Medications Comprehensive Discharge Medication List: Ambulatory Orders Cyclobenzaprine HCl [Flexeril -] 10 mg PO TID #21 tablet 08/29/17 Oxycodone HCl/Acetaminophen [Percocet 10-325 mg Tablet] 1 each PO Q4HWA PRN Albuterol 0.083% Nebulizer Cammie [Ventolin 0.083% Nebulizer Soln -] 1 neb NEB Q4H #10 vial 06/27/18 Nicotine Patch [Nicoderm Patch -] 14 mg TD DAILY #30 patch 06/27/18 predniSONE [Deltasone -] 40 mg PO DAILY #3 tablet 06/27/18 This patient is new to me today: No Emergency Visit: No Critical Care patient: No - Discharge Referral Referred to [facility] No
[2018-12-18 08:21] LABS: COCAINE, UR NEGATIVE ng/ml (CUTOFF=300); METHADONE, UR NEGATIVE ng/ml (CUTOFF=300); PHENCYCLIDINE,URINE NEGATIVE ng/ml (CUTOFF=25); URINE AMPHETAMINES NEGATIVE ng/ml (CUTOFF=500); URINE BARBITURATES NEGATIVE ng/ml (CUTOFF=200); URINE BENZODIAZEPINES NEGATIVE ng/ml (CUTOFF=200)
[2018-12-18 08:42] LABS: EPI CELLS 5.5 /HPF (0-5/HPF); HYALINE CASTS 57 /lpf (0-8); OPIATES, URI POSITIVE ng/ml (CUTOFF=300); PH,URINE 5.5 (5.0-8.0); URINE APPEARANCE CLOUDY; URINE BILIRUBIN NEGATIVE (NEGATIVE); URINE COLOR YELLOW; URINE GLUCOSE (UA) NEGATIVE (NEGATIVE); URINE KETONE TRACE (NEGATIVE); URINE LEUK ESTERASE NEGATIVE (NEGATIVE); URINE NITRITE NEGATIVE (NEGATIVE); URINE PROTEIN TRACE (NEGATIVE)
[2018-12-18 09:05] VITALS: BP 152/85; PULSE 78; TEMP 98.1
[2018-12-18] MEDS ORDERED: predniSONE 20 MG TABLET (UD) PO SCH (10:00)
[2018-12-18] MEDS ORDERED: predniSONE 40 MG, predniSONE 10 MG PO SCH (10:00)
[2018-12-18 10:45] LABS: URINE RBC 3.1 /hpf (0-4); URINE WBC 5 /hpf (0-5)
[2018-12-18] MEDS ORDERED: LIDOCAINE PATCH REMOVAL MC SCH (22:00)
--- NOTE | 2018-12-19 07:11 | EKG ---
Test Reason : Blood Pressure : / mmHG Vent. Rate : 092 BPM Atrial Rate : 092 BPM P-R Int : 160 ms QRS Dur : 106 ms QT Int : 378 ms P-R-T Axes : 047 059 030 degrees QTc Int : 467 ms SINUS RHYTHM WITH PREMATURE ATRIAL COMPLEXES WITH ABERRANT CONDUCTION ? [place] WHITE NONSPECIFIC ST ABNORMALITY ABNORMAL ECG WHEN COMPARED WITH ECG OF 25-JUN-2018 15:54, PREMATURE VENTRICULAR COMPLEXES ARE NO LONGER PRESENT ABERRANT CONDUCTION IS NOW PRESENT Confirmed by MARY LOU MERCEDES MD ([id number]) on 12/19/2018 7:10:41 AM Referred By: Confirmed By:MARY LOU MERCEDES MD
--- NOTE | 2018-12-21 12:48 | EKG ---
Test Reason : Blood Pressure : / mmHG Vent. Rate : 093 BPM Atrial Rate : 093 BPM P-R Int : 148 ms QRS Dur : 116 ms QT Int : 390 ms P-R-T Axes : 030 056 043 degrees QTc Int : 484 ms SINUS RHYTHM WITH FREQUENT PREMATURE VENTRICULAR COMPLEXES PROLONGED QT ABNORMAL ECG WHEN COMPARED WITH ECG OF 17-DEC-2018 22:07, PREMATURE VENTRICULAR COMPLEXES ARE NOW PRESENT ABERRANT CONDUCTION IS NO LONGER PRESENT Confirmed by ANDRA ARROYO, GABI ([id number]) on 12/21/2018 12:48:21 PM Referred By: Confirmed By:GABI SILVERMAN MD
== END 2018-12-18 10:55 | disposition home or self-care (01) | DRG 202 ==
LOC: JER 21:36 → JERBED 12-18 00:35
PROVIDERS: ADMIT Internal Medicine; ATTEND Internal Medicine
DX: J45.901 Unspecified asthma with (acute) exacerbation (principal); J98.11 Atelectasis; I45.6 Pre-excitation syndrome; F19.10 Other psychoactive substance abuse, uncomplicated; R00.0 Tachycardia, unspecified; D72.829 Elevated white blood cell count, unspecified; M79.18 Myalgia, other site; Z88.0 Allergy status to penicillin
CPT/HCPCS: 36415; 71045-TC-FY; 71275-TC; 74174-TC; 80053; 80307; 81003; 82550; 83690; 84484; 84702; 85025; 85379; 85610; 87086; 93005; 93010; 94150; 99284-25; J1644